=== PATIENT | male | born 1960 | race Caucasian/White ===

== ENCOUNTER → 2016-04-19 | Outpatient (CLI) | payer OTHER ==
[~2016-04-19] MED LIST: BND25 PO; CIPR-255 PO; CLC100 PO; DTR5 PO; ESCI10TA17 PO; GABA-112 PO; OXYC7.5T62 PO
[2016-04-19 12:27] LABS: BLOOD UREA NITROGEN 26 mg/dl (7-18); BUN/CREATININE RATIO 23.9 (10-20)
== END | disposition home or self-care (01) ==
LOC: C.LAB 11:14
PROVIDERS: ATTEND Urology
DX: R97.20 Elevated prostate specific antigen [PSA] (principal); C61 Malignant neoplasm of prostate

== ENCOUNTER 2016-06-27 05:28 | Inpatient (IN) | payer OTHER ==
[2016-06-10 08:44] VITALS: BMI 29.0
--- NOTE | 2016-06-10 09:14 | PAT Medication Instructions ---
Service Date June 10, 2016. Current Home Medication List Diphenhydramine Hcl (Benadryl), 25 MG PO QAM Escitalopram (Lexapro), 10 MG PO BID Gabapentin (Neurontin), 100 MG PO QAM Medication Instructions For Your Scheduled Surgery - Hold the following medications the morning of surgery: Diphenhydramine Hcl (Benadryl), 25 MG PO QAM - Take the following medications the morning of surgery with a sip of water: Escitalopram (Lexapro), 10 MG PO BID Gabapentin (Neurontin), 100 MG PO QAM - Take the following medications as scheduled the night before surgery: Escitalopram (Lexapro), 10 MG PO BID If you have any questions please call us at [phone] or [phone] ( [place]) or [phone]
--- NOTE | 2016-06-10 10:08 | DIAGNOSTIC IMAGING REPORT ---
CHEST PREADMISSION(PA/LAT) CLINICAL HISTORY: Preoperative chest SMOKER COMPARISON STUDY: No previous studies for comparison. FINDINGS: The cardiac and mediastinal contours are normal. There is no evidence of focal pulmonary consolidation. There is no evidence of failure. No pleural effusions are visualized.[ IMPRESSION: No active disease in the chest. Electronically signed by: Sebastian Fletcher M.D. 06/10/2016 10:07 AM Dictated Date/Time: 06/10/2016 10:07 AM
[2016-06-10 10:54] LABS: BASO % 0.6 %; BASO ABS # 0.05 K/uL (0-0.2); COMPLETE YES; EOS % 3.5 %; HEMATOCRIT 46.3 % (42-52); IG% 0.2 %; LYMPH % 18.1 %; LYMPH ABS # 1.54 K/uL (1.2-3.4); MEAN CELL VOLUME 90.3 fL (80-100); MEAN CORPUSCULAR HEMOGLOBIN 30.2 pg (25-34); MEAN CORPUSCULAR HGB CONC 33.5 g/dl (32-36); MEAN PLATELET VOLUME 10.8 fL (7.4-10.4); MONO % 10.1 %; NEUT % 67.5 %; PLATELET COUNT 257 K/uL (130-400); RED BLOOD COUNT 5.13 M/uL (4.7-6.1)
[2016-06-10 10:56] LABS: URINE APPEARANCE CLEAR (CLEAR); URINE BILIRUBIN NEG (NEG); URINE COLOR YELLOW; URINE NITRITE NEG (NEG); URINE SPECIFIC GRAVITY 1.027 (1.000-1.030); UROBILINOGEN NEG (NEG)
[2016-06-10 10:57] LABS: MANUAL MICROSCOPIC REQUIRED? NO; REVIEW REQ? NO
[2016-06-10 11:02] LABS: BUN/CREATININE RATIO 20.7 (10-20); CREATININE 1.2 mg/dl (0.60-1.40); POTASSIUM 4.2 mmol/L (3.5-5.1)
[2016-06-10 11:13] LABS: CALCIUM 9.3 mg/dl (8.5-10.1)
[~2016-06-27] VITALS: Ht 175.3 cm; Wt 89.4 kg
[2016-06-27] VITALS (9 sets, daily range): BP systolic 114–153; BP diastolic 53–94; PULSE 49–81; TEMP 36.4–36.6; O2SAT 68–100; Ht 175.3 cm; Wt 89.4 kg
[~2016-06-27 05:28] MED LIST changes: -BND25 PO; -CIPR-255 PO; -CLC100 PO; +DIPH25CA5 PO; -DTR5 PO; -OXYC7.5T62 PO
[2016-06-27] MEDS ORDERED: ACETAMINOPHEN IV 1000MG/100ML IV STA (05:51)
[2016-06-27] MEDS ORDERED: LACTATED RINGER'S 1000ML 1,000 ML IV SCH (06:00)
[2016-06-27] MEDS ORDERED: HEPARIN SOD 5000 UNIT/0.5 ML CARP SQ SCH (06:00)
[2016-06-27] MEDS ORDERED: CEFAZOLIN 1000MG/55 ML D5W IV SCH (06:00)
[2016-06-27] MEDS ORDERED: FENTANYL CITRATE INJ 50 MCG/1 ML 2 ML VIAL ONE (06:51)
[2016-06-27] MEDS ORDERED: GLYCOPYRROLATE INJ 0.2 MG/ML VIAL ONE ×2 (06:51→08:29)
[2016-06-27] MEDS ORDERED: DEXAMETHASONE SOD INJ 4 MG/ML VIAL ONE (06:51)
[2016-06-27] MEDS ORDERED: LIDOCAINE HCL 2% 2 ML VIAL (20MG/ML) ONE (06:51)
[2016-06-27] MEDS ORDERED: ROCURONIUM BROMIDE 10 MG/ML 5 ML VIAL ONE (06:51)
[2016-06-27] MEDS ORDERED: NEOSTIGMINE METHYLSULFATE 5 MG/5 ML SYR ONE (06:51)
[2016-06-27] MEDS ORDERED: PROPOFOL IV EMULSION 10 MG/ML 20 ML VIAL IV ONE (06:51)
[2016-06-27] MEDS ORDERED: MIDAZOLAM HCL 1 MG/ML 2ML VIAL ONE (06:51)
[2016-06-27] MEDS ORDERED: ONDANSETRON INJ 2 MG/ML 2 ML VIAL ONE (06:51)
--- NOTE | 2016-06-27 06:54 | History & Physical Bridge Note ---
H&P Re-Evaluation Bridge Note: I have examined the patient, reviewed the History & Physical and in the interval since the performance of the History & Physical I have noted the following changes of clinical significance: No changes noted
[2016-06-27] MEDS ORDERED: KETAMINE HCL INJ 50 MG/ML 10 ML VIAL ONE (07:09)
[2016-06-27] MEDS ORDERED: SODIUM CHLORIDE 0.9% INJ 10 ML VIAL ONE (07:09)
[2016-06-27] MEDS ORDERED: BUPIVACAINE 0.5 % 5 MG/1 ML MPF 30ML VIAL ONE (07:10)
[2016-06-27] MEDS ORDERED: PHENYLEPHRINE HCL INJ 10 MG/ML VIAL ONE (07:37)
[2016-06-27] MEDS ORDERED: CEFAZOLIN SOD 1 GM VIAL ONE (07:49)
[2016-06-27] MEDS ORDERED: FENTANYL CITRATE INJ 50 MCG/1 ML 2 ML VIAL IV PRN (08:00)
[2016-06-27] MEDS ORDERED: ONDANSETRON INJ 2 MG/ML 2 ML VIAL IV PRN ×2 (08:00→11:00)
[2016-06-27] MEDS ORDERED: ATROPINE SULFATE 0.1 MG/ML 5ML SYR IV PRN (08:00)
[2016-06-27] MEDS ORDERED: PROMETHAZINE HCL INJ 6.25 MG in SODIUM CHLORIDE 0.9% 50ML 50 ML IV PRN (08:00)
[2016-06-27] MEDS ORDERED: EpHEDrine SULFATE INJ 50 MG/ML AMP IV PRN (08:00)
[2016-06-27] MEDS ORDERED: HYDROmorphone INJ 1 MG/ML SYR IV PRN ×2 (08:00→11:00)
[2016-06-27] MEDS ORDERED: ATROPINE SULFATE 1MG/2.5ML SYR ONE (08:29)
[2016-06-27] MEDS ORDERED: EpHEDrine SULFATE 50MG/5ML SYR ONE (08:29)
[2016-06-27] MEDS ORDERED: HYDROmorphone INJ 2 MG/ML SYR/VIAL ONE (08:58)
[2016-06-27] MEDS ORDERED: LARYING-O-JET KIT (LTA) EXT ONE ×2 (09:03)
[2016-06-27] MEDS ORDERED: KETOROLAC TROMETHAMINE 30 MG/ML VIAL ONE (10:05)
--- NOTE | 2016-06-27 10:46 | [facility] Post Operative Brief Note ---
Immediate Operative Summary Operative Date June 27, 2016. Pre-Operative Diagnosis cTc [place] 3+3 Prostate cancer Post-Operative Diagnosis Same as preop Procedure(s) Performed Robotic-assisted Laparoscopic Prostatectomy, bilateral nerve sparing dissection, Suprapubic Tube placement Surgeon Dr. Mukul Person Embossing Machine Tender Surgeon(s) REID Boyle Estimated Blood Loss 75 cc Findings Watertight anastomosis, SPT in good location, significant periprostatic inflammation with trapped purulence at the level of the bladder neck dissection. Fluids (cc crystalloids) 1500 cc crystalloid Specimens Periprostatic fat Prostate + SVs Anterior bladder neck tissue Drains 18 fr dia, 10 cc, 16 fr SPT, 5 cc, #10 LINO LLQ Anesthesia GAET + local Complication(s) None Disposition Recovery Room / PACU
[2016-06-27] MEDS ORDERED: KETOROLAC TROMETHAMINE 15 MG/ML VIAL IV PRN (11:00)
[2016-06-27] MEDS ORDERED: OXYBUTYNIN CHLORIDE 5 MG TAB PO PRN (11:00)
[2016-06-27 11:14] LABS: HEMATOCRIT 46.8 % (42-52); MEAN CELL VOLUME 90.7 fL (80-100); MEAN CORPUSCULAR HEMOGLOBIN 30.4 pg (25-34); MEAN PLATELET VOLUME 10.1 fL (7.4-10.4); PLATELET COUNT 214 K/uL (130-400); RED BLOOD COUNT 5.16 M/uL (4.7-6.1); WHITE BLOOD COUNT 14.54 K/uL (4.8-10.8)
[2016-06-27] MEDS ORDERED: KETOROLAC TROMETHAMINE 30 MG/ML VIAL IV. PRN (11:15)
[2016-06-27 11:18] LABS: MEAN CORPUSCULAR HGB CONC 33.5 g/dl (32-36)
--- NOTE | 2016-06-27 11:34 | Anesthesiology Progress Note ---
Anesthesia Post Op Note Date & Time June 27, 2016 at 11:34 Vital Signs Pain Intensity: 5.0 Vital Signs Past 12 Hours Date Time Temp Pulse Resp B/P Pulse Ox O2 Delivery O2 Flow Rate FiO2 06/27/16 11:26 130/75 06/27/16 11:25 66 18 99 06/27/16 11:25 67 18 06/27/16 11:21 141/94 06/27/16 11:20 66 14 100 06/27/16 11:20 65 14 06/27/16 11:16 145/75 06/27/16 11:15 62 18 06/27/16 11:15 62 18 99 06/27/16 11:14 71 14 06/27/16 11:14 72 14 99 06/27/16 11:12 117/67 06/27/16 11:09 61 21 134/65 99 06/27/16 11:09 58 21 06/27/16 11:04 56 15 06/27/16 11:04 56 15 100 06/27/16 11:01 129/65 06/27/16 10:59 61 19 06/27/16 10:59 61 19 100 06/27/16 10:56 111/55 06/27/16 10:54 59 17 06/27/16 10:54 36.9 53 16 111/55 100 Mask 10 06/27/16 10:54 59 17 106/64 99 06/27/16 05:50 36.6 70 20 153/94 97 Room Air Notes Mental Status: alert / awake / arousable, participated in evaluation Pt Amnestic to Procedure: Yes Nausea / Vomiting: adequately controlled Pain: adequately controlled Airway Patency, RR, SpO2: stable & adequate BP & HR: stable & adequate Hydration State: stable & adequate Anesthetic Complications: no major complications apparent
[2016-06-27 11:42] LABS: BUN/CREATININE RATIO 16.5 (10-20); CALCIUM 8.2 mg/dl (8.5-10.1); CREATININE 1.4 mg/dl (0.60-1.40); POTASSIUM 4.6 mmol/L (3.5-5.1)
--- NOTE | 2016-06-27 12:34 | OPERATIVE REPORT ---
DATE OF OPERATION: 06/27/2016 PREOPERATIVE DIAGNOSIS: Clinical T1c, [place] 3+3 adenocarcinoma of the prostate. POSTOPERATIVE DIAGNOSES: Same, periprostatic bladder neck inflammation and purulent collections. PROCEDURE: Robot-assisted laparoscopic radical retropubic prostatectomy with bilateral nerve sparing dissection and suprapubic tube placement. SURGEON: Dr. Orion Person. SHAPE BRICK MOLDER: None. ANESTHESIA: General anesthesia with endotracheal intubation plus local at port sites. COMPLICATIONS: None. ESTIMATED BLOOD LOSS: 75 mL. INTRAVENOUS FLUIDS: Approximately 1200 mL of crystalloid. DRAINS LEFT IN PLACE: Include an 18-Belgian Farrell catheter to gravity drainage, silicone with 10 mL of sterile water in the balloon and a 16-Belgian suprapubic tube with 5 mL of sterile water in the balloon as well as a #10 LINO drain in the left lower quadrant. SPECIMENS SENT TO PATHOLOGY: Periprostatic fat, prostate plus seminal vesicles, anterior bladder neck tissue. BRIEF HISTORY OF PRESENT ILLNESS: Mr. Jacome is a pleasant 56-year-old male who has previously seen Dr. Simon and had been diagnosed with [place] 3+3 adenocarcinoma of the prostate in the fall of 2015. He originally decided upon active surveillance, but became uncomfortable with this over the spring and he decided upon a radical prostatectomy to manage his disease. His history of baseline voiding symptoms is noted. Please see H\T\P for further details. He is here today for robotic prostatectomy. Preoperative heparin subcutaneously is provided as well as intravenous cephalosporins. SCDs used for DVT prophylaxis. DESCRIPTION OF PROCEDURE: The patient was properly identified and brought to the operative suite after identification of appropriate consent on the chart, general anesthesia with endotracheal intubation was initiated. The patient was prepped and draped in standard fashion for this procedure. asbestos textile supervisor-out procedure was followed. All port sites were anesthetized with local prior to incision. A 12 mm supraumbilical incision was made vertically and abdomen was entered under direct visualization using a 12 mm visual obturator. Abdomen was insufflated and the patient was noted to be free of any significant injuries on access and placement of the scope. The ports were placed for a 4th arm robotic template including two 7 mm left-sided robotic ports, one 7 mm right-sided robotic port and a 5 and 12 mm assistant county engineer port on the right hand side. The patient was placed in Trendelenburg and robot was brought in and docked. Colonic attachments were loosed using cold scissors. Bladder was drained down to the level of the pubic bone. Prostate was defatted and fat was sent for pathologic analysis. Endopelvic fascia was sharply entered on both sides and the puboprostatic ligaments were incised. Dorsal vein was skeletonized and controlled in a [id number] fashion using a 0 Vicryl suture on a CT1 needle. Nerve sparing dissection was initiated on both sides at this point. Periprostatic fat was begun to be appreciated at this time. However, on traversing the bladder neck, the pockets of purulence were encountered consistent with previous episodes of prostatitis and/or urinary tract infection. At first, it was concern that these pockets were contained within prostate tissue with intravesical extension and a small portion of this was removed and sent for permanent analysis, but on close inspection was felt to be most consistent with inflamed bladder neck tissue. Contour prostate was noted to be good and no glandular tissue was appreciated within the prostate gland. This continued to be encountered circumferentially at the level of the bladder neck. However, the bladder neck was then divided in the posterior plane and then dropped in the midline until the vas deferens and the seminal vesicles were encountered in the midline. Again, significant inflammation was appreciated. Inferior bladder pedicles and prostatic pedicles were controlled using cold Weck clips and cold scissors as necessary. After this was complete, the remainder of the seminal vesicles and the vas deferens were dissected free and rectum was dropped in the midline up to the level of the apex of the prostate. Cold scissors were used to perform an exact nerve sparing dissection on both sides. Attention was turned to the bladder neck which was noted to be good aperture. The small pockets within the bladder neck that were draining pus were either excised cauterized to avoid leaving this in situ. The dorsal vein was divided using hot scissors and urethra was skeletonized with an excellent urethral length being appreciated. Cold scissors were used to divide the urethra after the Farrell catheter had been replaced. Posterior urethra was divided as well as the rectourethralis ligaments. Prostate was now freed and brought up into the abdomen. This was placed within an EndoCatch bag for retrieval at the end of the case. Pelvis was irrigated with saline and rectum was insufflated under saline irrigation demonstrating no evidence of any rectal injuries. Excellent hemostasis was appreciated at this time. Using a double armed V-Loc suture, a circumferential running anastomosis was performed to the urethra and the bladder neck. Prior to completion of closure, the Farrell catheter was visualized entering the bladder. This was tested with greater than 160 mL of irrigant and noted to be watertight. At this point, the bladder was filled and clamped and then through a small suprapubic incisions, the [place]ner suprapubic tube was advanced first into the abdomen and then into the bladder in its anterior aspect. This was noted to drain clear irrigant of 15 mL of sterile water were placed within the balloon. Excellent location was appreciated. Fourth arm was removed and #10 LINO drain was brought in via the fourth arm port. This was placed within the confines of the pelvis while avoiding placing it directly over the anastomosis. Robot was dedocked and robotic instruments were removed. The robotic camera was brought in via the assistant county engineer port. Strings to the EndoCatch bag were brought up through the supraumbilical port which was then enlarged sufficiently to allow for passage of the specimen bag without resistance or difficulties. Suprapubic incision was closed using 0 Vicryl suture on a UR-5 needle in a running fashion. A silk suture was used to secure the suprapubic tube and the LINO drain in place. Skin incisions were closed using Monocryl and Dermabond dressing. Excess carbon dioxide gas had been removed from the abdomen prior to completion of closure. A suprapubic tube and a Farrell catheter placed to gravity drainage. Anesthesia was reversed. The patient was transferred to recovery room in stable condition. FOLLOWUP CARE: The patient will be admitted to the floor for standard postoperative management. I attest to the content of the Intraoperative Record and any orders documented therein. Any exceptions are noted below. CAMMY
[2016-06-27 13:15] LABS: PARTIAL THROMBOPLASTIN RATIO 1.1; PROTHROMBIN TIME (PATIENT) 10.7 SECONDS (9.0-12.0)
[2016-06-27] MEDS: LACTATED RINGER'S 1000ML 1,000 ML IV SCH ×4 (13:40→23:38)
[2016-06-27] MEDS: CEFAZOLIN IV 2,000 MG in DEXTROSE 5% 50ML 50 ML IV SCH ×2 (13:49→21:30)
[2016-06-27] MEDS: ACETAMINOPHEN 500 MG TAB PO SCH ×2 (13:49→19:48)
[2016-06-27] MEDS: HEPARIN SOD 5000 UNIT/0.5 ML CARP SQ SCH (18:35)
[2016-06-27] MEDS: OXYCODONE/ACETAMINOPHEN 7.5-325 TAB PO PRN ×2 (19:57→21:30)
[2016-06-27] MEDS: ESCITALOPRAM OXALATE 10 MG TAB PO SCH (21:30)
[2016-06-27] MEDS: DOCUSATE SODIUM 100 MG CAP PO SCH (21:30)
[2016-06-28] MEDS: ACETAMINOPHEN 500 MG TAB PO SCH ×2 (01:46→09:53)
[2016-06-28 03:12] VITALS: BP 116/67; PULSE 47; TEMP 36.5; O2SAT 95
[2016-06-28] MEDS: CEFAZOLIN IV 2,000 MG in DEXTROSE 5% 50ML 50 ML IV SCH (06:15)
[2016-06-28] MEDS: HEPARIN SOD 5000 UNIT/0.5 ML CARP SQ SCH (07:15)
[2016-06-28] MEDS: LACTATED RINGER'S 1000ML 1,000 ML IV SCH (07:16)
[2016-06-28 07:27] VITALS: BP 113/73; PULSE 47; TEMP 36.6; O2SAT 95
--- NOTE | 2016-06-28 07:46 | Anesthesiology Progress Note ---
Anesthesia Post Op Note Date & Time June 28, 2016 at 07:46 Vital Signs Pain Intensity: 4.0 Vital Signs Past 12 Hours Date Time Temp Pulse Resp B/P Pulse Ox O2 Delivery O2 Flow Rate FiO2 06/28/16 07:27 36.6 47 18 113/73 95 Room Air 06/28/16 03:12 36.5 47 16 116/67 95 Room Air 06/27/16 23:15 36.5 81 16 114/79 92 Room Air 06/27/16 20:00 36.5 61 16 125/75 98 Room Air Notes Mental Status: alert / awake / arousable, participated in evaluation Pt Amnestic to Procedure: Yes Nausea / Vomiting: adequately controlled Pain: adequately controlled Airway Patency, RR, SpO2: stable & adequate BP & HR: stable & adequate Hydration State: stable & adequate Anesthetic Complications: no major complications apparent
[2016-06-28 08:02] LABS: BASO % 0.1 %; BASO ABS # 0.01 K/uL (0-0.2); COMPLETE YES; EOS % 0.4 %; HEMATOCRIT 41.8 % (42-52); IG% 0.2 %; LYMPH % 7.8 %; LYMPH ABS # 1.34 K/uL (1.2-3.4); MEAN CELL VOLUME 90.5 fL (80-100); MEAN CORPUSCULAR HEMOGLOBIN 29.9 pg (25-34); MEAN PLATELET VOLUME 10.8 fL (7.4-10.4); MONO % 8.9 %; NEUT % 82.6 %; PLATELET COUNT 204 K/uL (130-400); RED BLOOD COUNT 4.62 M/uL (4.7-6.1); WHITE BLOOD COUNT 17.12 K/uL (4.8-10.8)
[2016-06-28 08:32] LABS: BUN/CREATININE RATIO 18.6 (10-20); CREATININE 1.2 mg/dl (0.60-1.40); POTASSIUM 4.3 mmol/L (3.5-5.1)
--- NOTE | 2016-06-28 08:51 | Progress Note ---
Subjective Date of Service: June 28, 2016. Subjective Pt evaluation today including: conversation w/ patient, physical exam, chart review, lab review, review of inpatient medication list Pain: Controlled PO Intake: Gordy clears Voiding: dia catheter in place (SPT and dia draining well) 56 yo male POD#1 s/p RALRP, doing well. He notes he was OOBTC yesterday, gordy clears, pain well controlled. His labs are stable. Review of Systems Constitutional: No chills, No fever Eyes: No worsening of vision ENT: No hearing loss Respiratory: No shortness of breath, No wheezing Cardiac: No chest pain Abdomen: + pain (mild), No nausea, No vomiting Musculoskeletal: No muscle pain Male : + hematuria (improved) Neurologic: No memory loss, No paralysis, No weakness Psychiatric: No depression symptoms Heme: No clotting problems Endo: No fatigue Skin: No color change, No new/changing skin lesions Objective Vital Signs Date Time Temp Pulse Resp B/P Pulse Ox O2 Delivery O2 Flow Rate FiO2 06/28/16 07:27 36.6 47 18 113/73 95 Room Air 06/28/16 03:12 36.5 47 16 116/67 95 Room Air 06/27/16 23:15 36.5 81 16 114/79 92 Room Air 06/27/16 20:00 36.5 61 16 125/75 98 Room Air 06/27/16 19:30 Room Air 06/27/16 16:36 95 Room Air 06/27/16 15:15 36.6 53 16 121/77 99 Nasal Cannula 2.0 06/27/16 14:22 36.4 54 18 114/53 100 Nasal Cannula 2.0 06/27/16 13:19 36.5 62 17 121/75 68 Nasal Cannula 2.0 06/27/16 12:49 36.4 49 16 133/82 98 Nasal Cannula 2.0 06/27/16 12:10 99 Nasal Cannula 2.0 06/27/16 12:10 36.5 78 16 124/80 99 Nasal Cannula 2.0 06/27/16 12:10 99 Nasal Cannula 2.0 06/27/16 12:01 126/66 06/27/16 11:59 63 14 99 06/27/16 11:59 62 14 06/27/16 11:56 118/64 5/18/17 11:54 49 12 98 5/18/17 11:54 50 12 5/18/17 11:53 46 16 5/18/17 11:53 47 16 99 5/18/17 11:51 133/70 5/18/17 11:48 57 14 99 5/18/17 11:48 55 14 5/18/17 11:46 133/86 5/18/17 11:45 36.2 5/18/17 11:43 73 20 5/18/17 11:43 72 20 99 518/17 11:42 66 17 5/18/17 11:42 66 17 98 518/17 11:41 130/72 518/17 11:37 52 12 5/18/17 11:37 51 12 99 518/17 11:36 143/75 518/17 11:32 63 16 100 5/18/17 11:32 61 16 5/18/17 11:31 132/76 5/18/17 11:27 48 12 99 518/17 11:27 48 12 5/18/17 11:26 130/75 5/18/17 11:25 66 18 99 5/18/17 11:25 67 18 5/18/17 11:21 141/94 5/18/17 11:20 66 14 100 5/18/17 11:20 65 14 5/18/17 11:16 145/75 518/17 11:15 62 18 5/18/17 11:15 62 18 99 5/18/17 11:14 71 14 5/18/17 11:14 72 14 99 5/18/17 11:12 117/67 518/17 11:09 61 21 134/65 99 518/17 11:09 58 21 5/18/17 11:04 56 15 5/18/17 11:04 56 15 100 5/18/17 11:01 129/65 5/18/17 10:59 61 19 5/18/17 10:59 61 19 100 5/18/17 10:56 111/55 5/18/17 10:54 59 17 5/18/17 10:54 36.9 53 16 111/55 100 Mask 10 5/18/17 10:54 59 17 106/64 99 Physical Exam General Appearance: WD/WN, no apparent distress Eyes: normal inspection ENT: normal ENT inspection, hearing grossly normal Neck: supple, no adenopathy Respiratory/Chest: no respiratory distress, no accessory muscle use Cardiovascular: no JVD Abdomen: non tender, soft, + pertinent finding (inc c/d/i) Extremities: non-tender Neurologic/Psychiatric: alert, oriented x 3 Skin: normal color Laboratory Results Last 24 Hours Test 06/27/16 11:09 06/27/16 12:53 06/28/16 07:30 White Blood Count 14.54 K/uL 17.12 K/uL Red Blood Count 5.16 M/uL 4.62 M/uL Hemoglobin 15.7 g/dL 13.8 g/dL Hematocrit 46.8 % 41.8 % Mean Corpuscular Volume 90.7 fL 90.5 fL Mean Corpuscular Hemoglobin 30.4 pg 29.9 pg Mean Corpuscular Hemoglobin Concent 33.5 g/dl 33.0 g/dl RDW Standard Deviation 44.6 fL 45.2 fL RDW Coefficient of Variation 13.4 % 13.7 % Platelet Count 214 K/uL 204 K/uL Mean Platelet Volume 10.1 fL 10.8 fL Sodium Level 144 mmol/L 140 mmol/L Potassium Level 4.6 mmol/L 4.3 mmol/L Chloride Level 109 mmol/L 105 mmol/L Carbon Dioxide Level 31 mmol/L 28 mmol/L Anion Gap 4.0 mmol/L 7.0 mmol/L Blood Urea Nitrogen 23 mg/dl 22 mg/dl Creatinine 1.40 mg/dl 1.20 mg/dl Est Creatinine Clear Calc Drug Dose 63.6 ml/min 74.2 ml/min Estimated GFR () 63.7 76.8 Estimated GFR (Non- 55.0 66.3 BUN/Creatinine Ratio 16.5 18.6 Random Glucose 120 mg/dl 101 mg/dl Calcium Level 8.2 mg/dl Prothrombin Time 10.7 SECONDS Prothromb Time International Ratio 1.0 Activated Partial Thromboplast Time 28.0 SECONDS Partial Thromboplastin Ratio 1.1 Neutrophils (%) (Auto) 82.6 % Lymphocytes (%) (Auto) 7.8 % Monocytes (%) (Auto) 8.9 % Eosinophils (%) (Auto) 0.4 % Basophils (%) (Auto) 0.1 % Neutrophils # (Auto) 14.14 K/uL Lymphocytes # (Auto) 1.34 K/uL Monocytes # (Auto) 1.53 K/uL Eosinophils # (Auto) 0.06 K/uL Basophils # (Auto) 0.01 K/uL Immature Granulocyte % (Auto) 0.2 % Immature Granulocyte # (Auto) 0.04 K/uL Assessment and Plan A/P 56 yo male POD$1 s/p RALRP, doing well. Pleased with progress. Advance diet and activity. Discharge activity and limitations reviewed. Prefers SPT - will DC south and LINO prior to DC home. Discharge planning: home
[2016-06-28 09:00] LABS: CALCIUM 8.3 mg/dl (8.5-10.1)
[2016-06-28] MEDS ORDERED: GABAPENTIN 100 MG CAP PO SCH (09:00)
[2016-06-28] MEDS ORDERED: DTR5 PO (09:17)
[2016-06-28] MEDS ORDERED: CLC100 PO (09:17)
[2016-06-28] MEDS ORDERED: OXYC7.5T62 PO (09:17)
[2016-06-28] MEDS ORDERED: CIPR-255 PO (09:17)
--- NOTE | 2016-06-28 09:18 | Discharge Instructions ---
Discharge Instructions Date of Service June 28, 2016. Admission Reason for Admission: Prostate Cancer Discharge Discharge Diagnosis / Problem: Prostate Cancer Discharge Goals Goal(s): Decrease discomfort, Increase independence, Prevent Disease Progression Activity Recommendations Activity Limitations: per Instructions/Follow-up section . Instructions / Follow-Up Instructions / Follow-Up 1. Do not lift >15lbs x 6 weeks. 2. No heavy exercise x 6 weeks. You may engage in light activity such as walking and stairs as tolerated. 3. No sexual intercourse until cleared by Dr. Person or Dr. Petit. 4. [address] drive x [address] while taking narcotics. 5. Finish all of the antibiotic you have been prescribed. 6. Immediately call our office at [phone] if your catheter is removed for any reason. 7. Follow-up as scheduled. Please call our office at [phone] if you need to reschedule for any reason. . Current Hospital Diet Hospital Diet(s): Regular Diet Discharge Diet Recommended Diet: Regular Diet Procedures Procedures Performed: Robotic-assisted Laparoscopic Prostatectomy, bilateral nerve sparing dissection, Suprapubic Tube placement Pending Studies Studies pending at discharge: no Medical Emergencies . Who to Call and When: Medical Emergencies: If at any time you feel your situation is an emergency, please call 911 immediately. . Non-Emergent Contact Non-Emergency issues call your: Urologist Call Non-Emergent contact if: temperature is above 101 . . "Provider Documentation" section prepared by Daisy Lopes. . VTE Core Measure Inpt VTE Proph given/why not?: Unfractionated heparin SQ, SCD's [place] Drug Monitoring Program Search Results: no issues identified
[2016-06-28] MEDS: DOCUSATE SODIUM 100 MG CAP PO SCH ×2 (09:47→09:52)
[2016-06-28] MEDS: ESCITALOPRAM OXALATE 10 MG TAB PO SCH (09:47)
[2016-06-28] MEDS: OXYCODONE/ACETAMINOPHEN 7.5-325 TAB PO PRN (09:48)
[2016-06-28 11:49] VITALS: BP 113/73; PULSE 47; TEMP 36.6; O2SAT 95
[2016-06-28 12:00] VITALS: BP 124/86; PULSE 62; TEMP 37.2; O2SAT 94
--- NOTE | 2016-06-28 14:34 | DISCHARGE SUMMARY ---
ADMITTING ATTENDING: Dr. Orion Person. COMPLICATIONS: None. PROCEDURES OVER THE COURSE OF ADMISSION: Include a robot-assisted prostatectomy with suprapubic tube placement on 06/27/2016. BRIEF HISTORY: Mr. Jacome is a pleasant 56-year-old male who I have seen for prostate cancer as an outpatient who has decided upon a robotic prostatectomy to manage his disease. Seeing his low-grade and low volume cancer, bilateral nerve sparing dissection is planned. Please see H\T\P for further details. He is being admitted for this purpose. HOSPITAL COURSE: The patient was admitted after an uncomplicated robotic prostatectomy on 06/27/2016. Over the course of his admission, diet and activity were rapidly advanced. By postoperative day #1, the patient was tolerating a regular diet and ambulatory in the hallways, comfortable with oral pain medication. Once he is taking his diet and ambulated, he will be considered stable for discharge home. Please see hospital notes for further details. Farrell catheter will be removed and he will be discharged home with a suprapubic tube in place. LINO will also be removed prior to discharge. DISCHARGE INSTRUCTIONS: Please see medication list and discharge instruction sheets for further details. The patient is instructed to contact us should he note any fevers, chills, nausea, vomiting or other significant difficulties in the postoperative period. Postoperative appointments including trial of void and pathology discussion are reviewed.
== END 2016-06-28 13:15 | disposition home or self-care (01) | DRG 708 ==
LOC: ENRESERVTM → ENRESERVDT → C.ACU 05:28 → C.MSW 10:57
PROVIDERS: ADMIT Urology; ATTEND Urology
PROC: 0VT34ZZ Resection of Bilateral Seminal Vesicles, Percutaneous Endoscopic Approach (ICD-10-PCS; principal; 2016-06-27 07:30)
PROC: 0TBB4ZZ Excision of Bladder, Percutaneous Endoscopic Approach (ICD-10-PCS; principal; 2016-06-27 07:30)
PROC: 8E0W4CZ Robotic Assisted Procedure of Trunk Region, Percutaneous Endoscopic Approach (ICD-10-PCS; principal; 2016-06-27 07:30)
PROC: 0VT04ZZ Resection of Prostate, Percutaneous Endoscopic Approach (ICD-10-PCS; principal; 2016-06-27 07:30)
PROC: 0T9B40Z Drainage of Bladder with Drainage Device, Percutaneous Endoscopic Approach (ICD-10-PCS; principal; 2016-06-27 07:30)
PROC: 0TBC4ZX Excision of Bladder Neck, Percutaneous Endoscopic Approach, Diagnostic (ICD-10-PCS; principal; 2016-06-27 07:30)
DX: C61 Malignant neoplasm of prostate (principal); N30.90 Cystitis, unspecified without hematuria; N41.9 Inflammatory disease of prostate, unspecified; J44.9 Chronic obstructive pulmonary disease, unspecified; F41.9 Anxiety disorder, unspecified; F17.210 Nicotine dependence, cigarettes, uncomplicated; Z79.899 Other long term (current) drug therapy

== ENCOUNTER → 2016-09-09 | Outpatient (CLI) | payer OTHER ==
[~2016-09-09] MED LIST changes: +BND25 PO; +CIPR-255 PO; +CLC100 PO; -DIPH25CA5 PO; +DTR5 PO; +OXYC7.5T62 PO
[2016-09-09 13:42] LABS: BLOOD UREA NITROGEN 24 mg/dl (7-18); BUN/CREATININE RATIO 18.1 (10-20)
[2016-09-09 13:46] LABS: PROSTATE SPECIFIC ANTIGEN < 0.010 ng/ml (0.000-4.000)
== END | disposition home or self-care (01) ==
LOC: C.LAB 12:05
PROVIDERS: ATTEND Urology
DX: N52.9 Male erectile dysfunction, unspecified (principal)

== ENCOUNTER → 2016-12-07 | Outpatient (CLI) | payer OTHER ==
[~2016-12-07] MED LIST changes: -BND25 PO; +DIPH25CA5 PO
[2016-12-07 19:48] LABS: BLOOD UREA NITROGEN 29 mg/dl (7-18); BUN/CREATININE RATIO 22.8 (10-20); CREATININE 1.29 mg/dl (0.60-1.40)
[2016-12-07 19:52] LABS: PROSTATE SPECIFIC ANTIGEN < 0.010 ng/ml (0.000-4.000)
== END | disposition home or self-care (01) ==
LOC: C.LAB 19:04
PROVIDERS: ATTEND Urology
DX: N52.9 Male erectile dysfunction, unspecified (principal)

== ENCOUNTER → 2017-03-08 | Outpatient (CLI) | payer OTHER ==
[2017-03-08 19:30] LABS: BLOOD UREA NITROGEN 35 mg/dl (7-18)
== END | disposition home or self-care (01) ==
LOC: C.LAB 18:47
PROVIDERS: ATTEND Urology
DX: R97.20 Elevated prostate specific antigen [PSA] (principal)

== ENCOUNTER 2017-09-08 15:02 | Emergency (ER) | payer OTHER ==
[~2017-09-08] VITALS: Ht 175.3 cm; Wt 91.8 kg
[2017-09-08 15:11] VITALS: TEMP 36.7; Ht 175.3 cm; Wt 91.8 kg
[2017-09-08] MEDS ORDERED: LIDOCAINE/EPINEPH/TETRACAINE 1 EA SYR EXT STA (15:21)
--- NOTE | 2017-09-08 15:27 | EMERGENCY ROOM VISIT NOTE ---
ED Visit Note First contact with patient: 15:15 Chief Complaint: "Head crushed, work injury". History of Present Illness: This patient is a 57-year-old male who presents to the Emergency Department via private vehicle accompanied by a fellow colleague for evaluation of their 2 facial lacerations and had crushing injury. Patient sustained the laceration while working earlier today around 2:30 PM at [employer], when his head became pinned left to right with a few 100 pounds pressing on it. He notes that he did not lose consciousness, he did not vomit and feels well. His pain is a 2/10. He points to 2 lacerations on the left side of the face 1 over the left protestant and one in left eyebrow region as well as hematoma overlying the left parietal region minimal. They report a minimal amount of bleeding initially. They report no loss of consciousness. They deny any visual disturbance, nausea, vomiting, or neck pain. Patient's Tetanus status is currently up-to-date. Medications: As noted below Allergies: As noted below PMH: No pertinent SHx: Patient is employed and lives locally. ROS: All pertinent positive and negative review of systems are appropriately documented in the History of Present Illness. Physical Exam: VITAL SIGNS - Vital signs and nursing notes were reviewed. Hypertensive. Otherwise stable. GENERAL -57-year-old male appearing his stated age. Communicates well with provider and answers questions appropriately. SKIN - There are 2 lacerations overlying the left side of the face. The first is 3 cm in length overlying the left protestant with the other being 3 cm in length within the left eyebrow region. There is a total of 6 cm of repairable laceration noted. The edges gape apart with traction. There is no active bleeding appreciated. No deep structures including vessels, musculature, or bony structures are appreciated. HEAD - Normocephalic. No Strong's Sign or Raccoon's Eyes. No depressed skull fractures palpable. Only area of tenderness is just below the left eye favoring left temporal region extending into the left parietal and temporal region of the scalp. No other facial tenderness noted. No nose tenderness. EYES - PERRL with EOMI bilaterally. Without subconjunctival hemorrhage. Palpebral conjunctiva pink and moist with no injection. EARS - No deformities of external structures noted on gross examination bilaterally. No hemotympanum present. No tympanic perforation noted. NOSE - Midline and without cyanosis. No epistaxis or clear watery discharge noted. Septum midline without deviation. No septal hematoma noted. No overlying ecchymosis noted. No tenderness to palpation. MOUTH/OROPHARYNX - Without perioral cyanosis. Tongue midline with equal elevation of palate bilaterally. No blood noted in the oropharynx. No tonsillar hypertrophy, erythema, or exudates noted. No dental fractures noted. NECK - FROM assessed. No tenderness to palpation over the cervical spinous processes. No cervical paraspinal muscle tenderness noted. LUNGS - Chest wall symmetric without accessory muscle use, intercostals retractions, or central cyanosis. Normal vesicular breath sounds CTA B/L. No wheezes, rales, or rhonchi appreciated. CARDIAC - RRR with S1/S2. No murmur, rubs, or gallops appreciated. EXTREMITIES - No gross deformities noted of the extremities. +5/5 strength noted in UE/LE bilaterally. NEUROLOGIC - Cranial nerves II through XII grossly intact. Sensory intact to light touch throughout. PSYCH - A&Ox3 and cooperates fully with examiner. Pt is very pleasant and interacts well with examiner. IMAGING: CT HEAD WITHOUT CONTRAST (CT) CLINICAL HISTORY: Head pain status post trauma COMPARISON STUDY: No previous studies for comparison. TECHNIQUE: Axial CT of the brain is performed from the vertex to the skull base. IV contrast was not administered for this examination. A dose lowering technique was utilized adhering to the principles of ALARA. CT DOSE: FINDINGS: No intra or extra-axial mass lesions are visualized. There is no CT evidence of acute cortical infarction. There is no evidence of midline shift. There is no acute hemorrhage. No calvarial fractures are visualized. There is left frontotemporal or scalp edema There is no evidence of pathologic ventricular dilatation. There is left maxilla sinus mucosal thickening. IMPRESSION: 1. Left frontotemporal scalp edema 2. No acute intracranial findings. Electronically signed by: Sebastian Fletcher M.D. 09/08/2017 3:54 PM Dictated Date/Time: 09/08/2017 3:[address] FACIAL BONES-MXILLOFAC WITHOUT CT DOSE: CLINICAL HISTORY: Facial pain status post trauma COMPARISON STUDY: No previous studies for comparison. TECHNIQUE: Helical images were acquired in the transverse plane. The study was reviewed and analyzed on the independent 3-D workstation. A dose lowering technique was utilized adhering to the principles of ALARA. The pterygoid plates appear intact. The zygomatic arches appear intact. The globes appear intact. There is no evidence of orbital emphysema. The orbital paz and floor appear intact. The mandibular condyles appear intact. There is left frontal and temporal scalp edema. There is left periorbital edema. There is a left nasal bone fracture, possibly old There is fluid and mucosal thickening within the left maxillary sinus. There is deformity of the anterior wall the left maxillary sinus and posterior lateral wall. I suspect but am not certain that these are old. IMPRESSION: 1. Left frontal and temporal scalp edema. Left periorbital edema 2. Left nasal bone fracture, possibly old 3. Mucosal disease within the left maxillary sinus. Deformities of the anterior wall and posterior lateral paz of the left maxillary sinus, possibly old. Please correlate with patient's current site of pain as well as with any history of remote trauma. Electronically signed by: Sebastian Fletcher M.D. 09/08/2017 4:01 PM Dictated Date/Time: 09/08/2017 3:[address] SCAN OF THE CERVICAL SPINE CLINICAL HISTORY: Trauma. COMPARISON STUDY: No priors. TECHNIQUE: CT scan of the cervical spine is performed from the skull base to the upper thoracic spine. Images are reviewed in the axial, sagittal, and coronal planes. IV contrast was not administered for this examination. A dose lowering technique was utilized adhering to the principles of ALARA. CT DOSE: 1129.07 mGy.cm FINDINGS: Skeletal structures: The skeletal structures are well mineralized. There is no evidence of fracture or subluxation involving the cervical spine. Vertebral body height and alignment are maintained. The odontoid process and lateral masses are intact. The atlantoaxial articulation is preserved. The spinous processes appear intact. Mild uncovertebral and facet arthropathy are noted in the mid to lower cervical region. Intervertebral discs: There is mild disc space narrowing at C5-C6. The remaining disc spaces appear maintained. Central canal: A large posterior disc bulge at C5-C6 may contribute to acquired compromise of the central canal. Soft tissues: The prevertebral and paraspinous soft tissues are within normal limits. Calvarium: The visualized calvarium at the skull base appears intact. Brain parenchyma: Partially visualized brain parenchyma the skull base is within normal limits. Sinuses and mastoids: Mucosal thickening is noted in the partially imaged maxillary antra. The mastoid air cells are well pneumatized. Lung apices: Clear as visualized. IMPRESSION: There is no evidence of fracture or subluxation involving the cervical spine. Electronically signed by: Shyam Prather M.D. 09/08/2017 3:58 PM Dictated Date/Time: 09/08/2017 3:54 PM ED Course: Patient was seen and evaluated by myself. Patient had no focal neurological deficits. Patient's exam is otherwise unremarkable. Patient reports no visual disturbances, nausea, vomiting, or over-lethargy. Risk and benefits of performing primary wound closure versus no repair were discussed with the patient who verbalizes understanding. Verbal consent was obtained prior to performing the procedure. Let gel was placed upon the 2 lacerations. The first laceration overlying the protestant region barely gapes apart with traction at this point. Patient preferred to have this just cleansed and dressed with a bacitracin dressing and not stitch. I believe this is reasonable. Attention was then turned to the other laceration in the left eyebrow region which let gel was allowed to sit in place for greater than 45 minutes. Furthermore, 3 cc of 1% lidocaine was used to anesthetize the 3 cm laceration. The wound was cleansed and prepped in the typical sterile fashion utilizing normal saline and Betadine. The wound was sterilely draped. Once proper anesthetization was established, the wound was further examined and demonstrated no deep involvement. The wound was copiously irrigated with normal saline and Betadine. The wound was closed using 3 simple, 6-0 nylon sutures with the wound edges being well approximated. Patient tolerated the procedure well. No complications were met. The wound was cleansed and dressed with a Bacitracin dressing. Secondary to mechanism of injury and his presentation I will recommend CT scan of the head, face and C-spine without contrast. Results as above. There are questionable fractures of the left maxillary sinus region. He has no tender overlying this region. I did discuss these findings with radiology to correlate with mechanism of injury. These are very small. I did elect to discuss this with the on-call plastic surgeon, Dr. Lr. He will follow up with her in the outpatient setting for reevaluation. He is to follow with Worker's Compensation. Upon my reassessment here I believe he is stable for outpatient management. He will be placed upon Augmentin to prevent infection secondary to potential small fracture however I favor these to be old. Patient educated on worrisome symptoms for return visit to the Emergency Department. Patient discharged to home in good condition. He did request something stronger for pain at home in regard to the contusion overlying the left parietal region therefore will be given [place]. He is to not drive with this. Benefit versus risk discussed. No red flags in the [place] drug monitoring system. In the evaluation and treatment of this patient, the following differential diagnoses were considered: Intracranial Abnormality, Intracranial Hemorrhage, Subdural Hematoma, Subarachnoid Hemorrhage, Hydrocephalus facial fracture, cervical spine fracture, among others. Current/Historical Medications Scheduled Amoxicillin & Pot Clavulanate (Augmentin 875-125 mg), 1 TAB PO BID Gabapentin (Neurontin), 100 MG PO QAM Scheduled PRN Escitalopram (Lexapro), 10 MG PO BID PRN for Anxiety Hydrocodone/Acetaminophen 5MG/325MG ([place] 5MG/325MG), 1 TABLET PO Q6 PRN for Pain Meloxicam (Mobic), 15 MG PO DAILY PRN for Pain Allergies Coded Allergies: BEE STING (Verified Allergy, Intermediate, HIVES, 06/27/16) NO KNOWN DRUG ALLERGIES (Verified Allergy, Unknown, nkda, 06/27/16) Vital Signs Date Time Temp Pulse Resp B/P (MAP) Pulse Ox O2 Delivery O2 Flow Rate FiO2 09/08/17 17:21 60 16 150/93 97 09/08/17 15:11 36.7 83 18 174/100 95 Room Air Medications Administered Medications (Trade) Dose Ordered Sig/Jarrett Route Start Time Stop Time Status Last Admin Dose Admin Tetracaine/ Epinephrine/ Lidocaine (L.e.t. Gel 4%/ 1:100/0.5%) 1 ea NOW STAT EXT 09/08/17 15:21 09/08/17 15:24 DC 09/08/17 15:33 1 EA Lidocaine HCl (Xylocaine 1% Inj (Local)) 20 ml STK-MED ONCE .ROUTE 09/08/17 16:27 09/08/17 16:28 DC 09/08/17 16:31 20 ML Departure Information Impression Primary Impression: Crushing injury of head Additional Impression: Face lacerations Dispostion Home / Self-Care Condition GOOD Prescriptions Amoxicillin & Pot Clavulanate (Augmentin 875-125 mg) 1 Tab Tab 1 TAB PO BID for 7 Days, #14 TAB Prov: Sancho Cho PA-C 09/08/17 Hydrocodone/Acetaminophen 5MG/325MG ([place] 5MG/325MG) Tab 1 TABLET PO Q6 Y for Pain, #8 TAB For Initial Treatment Prov: Sancho Cho PA-C 09/08/17 Referrals Paola Ruano D.O. (PCP) Modesta Lr MD Patient Instructions My [facility] Additional Instructions Discharge Instructions: You have received 3 sutures on your left eyebrow region. These sutures are NOT dissolvable and WILL need to be removed by a health care provider in 7 days. You can return to the Emergency Department or contact your Primary Care Provider to have the sutures removed. Please follow-up with Dr. Lr, of plastic surgery. Please call her number to schedule follow-up. Please call her office first thing tomorrow morning. Please also follow-up with Worker's Comp. regarding your work-related injury. You may have to talk with HR or your supervisor claims to identify who this would be. Please take Augmentin, 1 tablet every 12 hours for 7 days to help prevent infection. Please also call your family doctor to schedule follow-up regarding the CT scans of which were copy to the family doctor. This is in regard to the sinus disease. You have also be given a short supply of pain medication, do not drive with this. Do not take this with any other medication for treatment of pain or any Tylenol. Proper wound care is essential for adequate wound healing and infection prevention. You can shower and clean the wound with soap and water. Do not scour over the wound, rather pat dry with a towel. Do not submerse the wound ( i.e. bathe or dish wash) until the sutures have been removed. You can use an antibiotic ointment with a dressing over the wound for the next 3 weeks, but please be sure to only apply a thin film of ointment like Bacitracin. This can be applied 3-4 times daily. If crust develops over the wound you can use a Q- tip with ointment on the end to gently cleanse the crusts. Please do NOT use triple antibiotic ointment as this can cause skin irritation/ reaction. Rather, the bacitracin is prefered. The antibiotic cream will help to decrease scaring and decrease infection risk. Look for signs of infection of the wound including: increased pain, swelling, foul discharge, streaking, or increased temperature. If any of these are noticed you should return to the Emergency Department for further assessment and treatment. As with any laceration you may have received nerve damage to the surrounding tissues. This damage may or may not be permanent. You should keep the area covered with sunscreen when at risk for exposure to help minimize scarring. You can also use scar reducing creams with silicone such as ScarAway silicone serum found at pharmacies over the counter of which may be applied according to package. Please do not apply for more than 3 months. These may be used after the first 3 weeks of antibiotic ointment. Please do NOT use creams with vitamin E, as these can cause irritation and skin thinning. For pain control, you can use the following [id number] medicines (if >12 yo): - Regular strength (325mg/tab) Tylenol (acetaminophen) 1-2 tabs every 4-6 hours as needed. Do not exceed 12 tablets in a 24 hour period. Avoid taking more than 3 grams (3000 mg) of Tylenol per day. This includes any other sources of acetaminophen you may take on a regular basis. - Regular strength (200 mg/tab) Advil (ibuprofen) 1-2 tabs every 4-6 hours as needed. Do not exceed a dose of 3200 mg per day. Return to the emergency department if your symptoms worsen despite treatment course outlined above. Problem Qualifiers
--- NOTE | 2017-09-08 15:55 | DIAGNOSTIC IMAGING REPORT ---
CT HEAD WITHOUT CONTRAST (CT) CLINICAL HISTORY: Head pain status post trauma COMPARISON STUDY: No previous studies for comparison. TECHNIQUE: Axial CT of the brain is performed from the vertex to the skull base. IV contrast was not administered for this examination. A dose lowering technique was utilized adhering to the principles of ALARA. CT DOSE: FINDINGS: No intra or extra-axial mass lesions are visualized. There is no CT evidence of acute cortical infarction. There is no evidence of midline shift. There is no acute hemorrhage. No calvarial fractures are visualized. There is left frontotemporal or scalp edema There is no evidence of pathologic ventricular dilatation. There is left maxilla sinus mucosal thickening. IMPRESSION: 1. Left frontotemporal scalp edema 2. No acute intracranial findings. Electronically signed by: Sebastian Fletcher M.D. 09/08/2017 3:54 PM Dictated Date/Time: 09/08/2017 3:52 PM
--- NOTE | 2017-09-08 15:59 | DIAGNOSTIC IMAGING REPORT ---
CT SCAN OF THE CERVICAL SPINE CLINICAL HISTORY: Trauma. COMPARISON STUDY: No priors. TECHNIQUE: CT scan of the cervical spine is performed from the skull base to the upper thoracic spine. Images are reviewed in the axial, sagittal, and coronal planes. IV contrast was not administered for this examination. A dose lowering technique was utilized adhering to the principles of ALARA. CT DOSE: 1129.07 mGy.cm FINDINGS: Skeletal structures: The skeletal structures are well mineralized. There is no evidence of fracture or subluxation involving the cervical spine. Vertebral body height and alignment are maintained. The odontoid process and lateral masses are intact. The atlantoaxial articulation is preserved. The spinous processes appear intact. Mild uncovertebral and facet arthropathy are noted in the mid to lower cervical region. Intervertebral discs: There is mild disc space narrowing at C5-C6. The remaining disc spaces appear maintained. Central canal: A large posterior disc bulge at C5-C6 may contribute to acquired compromise of the central canal. Soft tissues: The prevertebral and paraspinous soft tissues are within normal limits. Calvarium: The visualized calvarium at the skull base appears intact. Brain parenchyma: Partially visualized brain parenchyma the skull base is within normal limits. Sinuses and mastoids: Mucosal thickening is noted in the partially imaged maxillary antra. The mastoid air cells are well pneumatized. Lung apices: Clear as visualized. IMPRESSION: There is no evidence of fracture or subluxation involving the cervical spine. Electronically signed by: Shyam Prather M.D. 09/08/2017 3:58 PM Dictated Date/Time: 09/08/2017 3:54 PM
--- NOTE | 2017-09-08 16:03 | DIAGNOSTIC IMAGING REPORT ---
CT FACIAL BONES-MXILLOFAC WITHOUT CT DOSE: CLINICAL HISTORY: Facial pain status post trauma COMPARISON STUDY: No previous studies for comparison. TECHNIQUE: Helical images were acquired in the transverse plane. The study was reviewed and analyzed on the independent 3-D workstation. A dose lowering technique was utilized adhering to the principles of ALARA. The pterygoid plates appear intact. The zygomatic arches appear intact. The globes appear intact. There is no evidence of orbital emphysema. The orbital paz and floor appear intact. The mandibular condyles appear intact. There is left frontal and temporal scalp edema. There is left periorbital edema. There is a left nasal bone fracture, possibly old There is fluid and mucosal thickening within the left maxillary sinus. There is deformity of the anterior wall the left maxillary sinus and posterior lateral wall. I suspect but am not certain that these are old. IMPRESSION: 1. Left frontal and temporal scalp edema. Left periorbital edema 2. Left nasal bone fracture, possibly old 3. Mucosal disease within the left maxillary sinus. Deformities of the anterior wall and posterior lateral paz of the left maxillary sinus, possibly old. Please correlate with patient's current site of pain as well as with any history of remote trauma. Electronically signed by: Sebastian Fletcher M.D. 09/08/2017 4:01 PM Dictated Date/Time: 09/08/2017 3:56 PM
[2017-09-08] MEDS ORDERED: LIDOCAINE HCL 1% 20 ML VIAL ONE (16:27)
[2017-09-08] MEDS ORDERED: MELO-84 PO (16:36)
[2017-09-08] MEDS ORDERED: HYDR-5688 PO (17:12)
[2017-09-08] MEDS ORDERED: AMOX875T PO (17:12)
[2017-09-08 17:21] VITALS: BP 150/93; PULSE 60; O2SAT 97
== END 2017-09-08 17:32 | disposition home or self-care (01) ==
LOC: C.EDB 15:03 → C.EDD 17:32
DX: S07.9XXA Crushing injury of head, part unspecified, initial encounter (principal); S01.81XA Laceration without foreign body of other part of head, initial encounter; W23.0XXA Caught, crushed, jammed, or pinched between moving objects, initial encounter; Y99.0 Civilian activity done for income or pay; Z91.030 Bee allergy status

== ENCOUNTER 2023-08-18 14:37 | Inpatient (IN) ==
[2023-08-18 15:15] LABS: Basophils # (auto) 0.12 K/uL (0.00-0.20); Basophils % (auto) 1.3 %; Eosinophils # (auto) 1.13 K/uL (0.00-0.50); Eosinophils % (auto) 12.4 %; Hemoglobin 15.7 g/dl (14.0-18.0); Immature Granulocytes # (auto) 0.02 K/uL (0.01-0.20); Immature Granulocytes % (auto) 0.2 %; Lymphocytes # (auto) 1.71 K/uL (1.20-3.40); Lymphocytes % (auto) 18.8 %; Mean Corpuscular Hemoglobin 29.3 pg (25.0-34.0); Mean Corpuscular Hgb Conc 32.7 g/dL (32.0-36.0); Mean Corpuscular Volume 89.6 fL (80.0-100.0); Mean Platelet Volume 10.7 fL (9.4-12.4); Monocytes # (auto) 0.74 K/uL (0.11-0.59); Monocytes % (auto) 8.1 %; Neutrophils # (auto) 5.36 K/uL (1.40-6.50); Neutrophils % (auto) 59.2 %; Platelet Count 271 K/uL (130-400); RDW Coefficient of Variation 13.2 % (11.5-14.5); RDW Standard Deviation 43.3 fL (36.4-46.3); Red Blood Count 5.36 M/uL (4.70-6.10); White Blood Count 9.08 K/ul (4.8-10.8)
[2023-08-18 15:32] LABS: Albumin Globulin Ratio 1.6 (0.9-2); Albumin Level 4.3 gm/dl (3.4-5.0); Bilirubin,Total 0.4 mg/dl (0.2-1.0); Calcium 9.5 mg/dl (8.6-10.3); Creatinine Clr Calc Pharmacy 52.4 ml/min; Est GFR (African American) 55.8 ml/min; Est GFR (Non-African American) 48.2 ml/min; Globulin 2.7 gm/dl (2.5-4.0); Potassium 4.9 mmol/L (3.5-5.1)
[2023-08-18 15:38] LABS: Troponin I High Sensitivity 5.2 pg/ml (0-20)
[2023-08-18 15:46] LABS: Partial Thromboplastin Time 28 Seconds (21-31); Prothrombin Time 10.4 Seconds (9.0-12.0)
--- NOTE | 2023-08-18 15:49 | XRay Report ---
XR chest 1V not portable HISTORY: Chest pain, nonspecific COMPARISON: Chest 08/29/2020. FINDINGS: The lungs are clear. Cardiac silhouette is normal in size. No pleural effusions. No pneumot horax. IMPRESSION: No acute process. ACT 112: Negative or not required by law. Electronically signed by: Og Younger M.D. 08/18/2023 3:47 PM
[2023-08-18 15:54] LABS: Influenza A virus by PCR Negative (Neg); Influenza B virus by PCR Negative (Neg); RSV by PCR Negative (Neg); SARS CoV2 RNA(COVID-19) Ceph NEGATIVE (Negative)
--- NOTE | 2023-08-18 16:06 | Emergency Department Note ---
Impression & Plan SOB (shortness of breath), Wheezing, Pneumonia, MURCIA (dyspnea on exertion) ED Provider Note NAME: FRANCIS ABARCA AGE: 63 SEX: M : 1960 ARRIVES VIA: Walk-In INFORMANT: [Patient] ED PROVIDER(S): [Shyam Ochoa MD] CHIEF COMPLAINT: Shortness of breath HISTORY OF PRESENT ILLNESS: The patient is a 63-year-old male who has had increasing shortness of breath over the last month. His doctor's office gave him an Anoro device. He is also using albuterol. Despite these meds, he has become more short of breath especially when he tries to lay flat or he exerts himself. The patient has noticed himself wheeze, there has been some cough that is mucousy. No fever. The patient does smoke, he actually tried to quit about a week ago because of his breathing issue. He does have a history of childhood asthma. Patient had a similar episode several months ago more towards the beginning of this year. He was seen at urgent care and given steroids which seemed to improve his symptoms. The patient does not have chest pain. He has no history of DVT or PE. No vomiting or diarrhea. Of note, in triage, his O2 saturation was low and he was placed on nasal cannula supplementation. He does not wear oxygen regularly. PMHx/PSHx/Social Hx: See Below PHYSICAL EXAM: GENERAL: Patient is in no acute distress. HEENT: No acute trauma, normocephalic atraumatic, mucous membranes moist, no nasal congestion. NECK: No stridor, no adenopathy, no meningismus, trachea is midline. LUNGS: Wheezing bilaterally with diminished breath sounds bilaterally. Patient is short of breath with speaking longer sentences. HEART: Without murmurs gallops or rubs, regular rate and rhythm. ABDOMEN: Soft, nontender, no peritonitis. EXTREMITIES: No cyanosis, full range of motion of all the joints without pain or difficulty. NEUROLOGIC: Oriented x 3, no acute motor or sensory deficits, no focal weakness. SKIN: No jaundice, no diaphoresis. DIFFERENTIAL DIAGNOSIS: Bronchitis or pneumonia, CHF, PE, exacerbation of asthma/COPD, anemia, cardiac ischemia, among others. EMERGENCY DEPARTMENT PROCEDURES: MEDICAL DECISION MAKING: There is no leukocytosis or concerning anemia. There is a normal platelet count. No coagulopathy. Patient's creatinine was somewhat elevated at 1.50, likely from dehydration. No electrolyte abnormality in need of emergent correction. BNP was not elevated making CHF unlikely. ECG shows a normal sinus rhythm, no ischemia or dysrhythmia. Cardiac enzyme testing x 1 is not consistent with acute cardiac injury. COVID, influenza and RSV test were negative. Chest x-ray was clear, no pneumonia or CHF. Chest CT did not show PE, bronchitis and potential pneumonia was seen. The patient received a DuoNeb, IV Solu-Medrol, IV saline. He received IV ceftriaxone and oral Zithromax. The patient presents short of breath, things have been worsening for a month. He was borderline hypoxic, wheezing and seemed short of breath even with speaking longer sentences. With his history of smoking, his history of asthma, his CT findings, I do think a hospital stay is warranted. I spoke with the patient and case management, the on-call hospitalist was consulted. Prior/Outside records/notes reviewed: None ECG per my interpretation: Indication was shortness of breath. The ECG shows a normal sinus rhythm with a rate of 77. There is no acute ST elevation, no PVCs. The QTc is 402. Continuous Cardiac Monitoring per my interpretation: An order was placed for continuous cardiac monitoring. The monitor shows a rate of 85 with normal sinus rhythm. Imaging/x-ray results per my interpretation: Chest x-ray does not show mediastinal widening, pneumonia or pneumothorax. Chronic Medical/Social conditions affecting care: Tobacco use. Care/Management discussed with: Case management, the on-call hospitalist. Level of care consideration(s): After review of the information above and other included data: --I believe the patient requires escalation of care to admission DISPOSITION: Admission Past Med/Surg History Problem List (Updated 08/18/23 @ 22:16 by Shyam Ochoa MD) MURCIA (dyspnea on exertion) (Acute) Pneumonia (Acute) Wheezing (Acute) SOB (shortness of breath) (Acute) Bronchopneumonia Elevated PSA (Acute) Prostate cancer (Acute 11/07/15) "Abnormal digital rectal examination, pretreatment PSA 4.850 Status post ultrasound-guided biopsies 11/07/2015 Adenocarcinoma of the prostate Edvin 3+3 Prostate volume 33.4 Prostate density 0.145" Medical History CKD (chronic kidney disease) HLD (hyperlipidemia) Tobacco use disorder HTN (hypertension) Impotence, organic Surgical History H/O prostatectomy Family History Other Colorectal cancer Diabetes Lung cancer Social History Smoking Status: Former smoker Cigarettes Per Day: 10 per day, has not smoked in 1 week; Preferred Language: Persian Feels Safe at Home: Yes Allergies Allergies Allergy/AdvReac Type Severity Reaction Status Date / Time bee venom protein (honey bee) Allergy Intermediate HIVES Verified 07/08/23 09:38 Home Meds Home Medications Medication Instructions Recorded Confirmed atorvastatin 40 mg tablet 40 mg PO DAILY 08/29/20 08/18/23 meloxicam 15 mg tablet 15 mg PO DAILY PRN Back Pain 08/29/20 08/18/23 tramadol 50 mg tablet 50 mg PO BID PRN Pain 08/29/20 08/18/23 albuterol sulfate 90 mcg/actuation 2 inh inhalation Q4H PRN sob or 08/18/23 08/18/23 aerosol inhaler wheezing lisinopril 40 mg tablet 40 mg PO DAILY 08/18/23 08/18/23 umeclidinium 62.5 mcg-vilanterol 1 inh inhalation DAILY 08/18/23 08/18/23 25 mcg/actuation powdr for inhalation (Anoro Ellipta) Results & Data (ED) Vital Signs Vital Signs - 24 hr 08/18/23 14:42 Temperature 36.9 C Temperature Source Temporal Artery Scan Pulse Rate 85 Respiratory Rate 18 Respiratory Effort / Characteristics Non-Labored Spontaneous Respiratory Depth Normal Blood Pressure 155/104 H Blood Pressure Mean 121 Pulse Oximetry 90 Oxygen Delivery Method Room Air Sepsis Recent Fever Within 48 Hours No Sepsis New/Unexplained Change in Mental Status No Sepsis Action Taken by Nursing No Action Required Home Medications Current Medication List: was personally reviewed by me Laboratory Data Attestation: I reviewed the patient's lab results. 08/18/23 14:55 08/18/23 14:55 Lab Results 08/18/23 08/18/23 Range/Units 14:55 14:56 WBC 9.08 (4.8-10.8) K/ul RBC 5.36 (4.70-6.10) M/uL Hgb 15.7 (14.0-18.0) g/dl Hct 48.0 (42.0-52.0) % MCV 89.6 (80.0-100.0) fL MCH 29.3 (25.0-34.0) pg MCHC 32.7 (32.0-36.0) g/dL RDW Std Deviation 43.3 (36.4-46.3) fL RDW Coeff of Lucy 13.2 (11.5-14.5) % Plt Count 271 (130-400) K/uL MPV 10.7 (9.4-12.4) fL Immature Gran % (Auto) 0.2 % Neut % (Auto) 59.2 % Lymph % (Auto) 18.8 % [place] % (Auto) 8.1 % Eos % (Auto) 12.4 % Baso % (Auto) 1.3 % Neut # (Auto) 5.36 (1.40-6.50) K/uL Lymph # (Auto) 1.71 (1.20-3.40) K/uL [place] # (Auto) 0.74 H (0.11-0.59) K/uL Eos # (Auto) 1.13 H (0.00-0.50) K/uL Baso # (Auto) 0.12 (0.00-0.20) K/uL Immature Gran # (Auto) 0.02 (0.01-0.20) K/uL PT 10.4 (9.0-12.0) Seconds INR 1.0 (0.9-1.1) APTT 28 (21-31) Seconds PTT Ratio 1.0 Sodium 138 (136-145) mmol/L Potassium 4.9 (3.5-5.1) mmol/L Chloride 106 (98-107) mmol/L Carbon Dioxide 27 (21-32) mmol/L Anion Gap 5 (3-11) BUN 27 H (6-23) mg/dl Creatinine 1.50 H (0.6-1.4) mg/dl Est Cr Clr Drug Dosing 52.4 ml/min Est GFR ( Amer) 55.8 ml/min Est GFR (Non-Af Amer) 48.2 ml/min BUN/Creatinine Ratio 18.0 (10-20) Glucose 98 (70-99(Fasting)) mg/dl Calcium 9.5 (8.6-10.3) mg/dl Total Bilirubin 0.4 (0.2-1.0) mg/dl AST 28 (13-39) U/L ALT 38 (7-52) U/L Alkaline Phosphatase 88 (34-104) U/L Troponin I High Sens 5.2 (0-20) pg/ml B-Natriuretic Peptide 42 (0-100) pg/ml Total Protein 7.0 (6.0-8.3) gm/dl Albumin 4.3 (3.4-5.0) gm/dl Globulin 2.7 (2.5-4.0) gm/dl Albumin/Globulin Ratio 1.6 (0.9-2) Procalcitonin 0.03 (0-0.5) ng/ml SARS-CoV-2 (PCR) NEGATIVE (Negative) Influenza Type A (PCR) Negative (Neg) Influenza Type B (PCR) Negative (Neg) RSV (RT-PCR) Negative (Neg) Administered Medications Albuterol (Albut/Ipratrop 3mg/0.5mg Neb 3 Ml Vial) 3 ml NEB QIDR DONA; Protocol Stop: 09/17/23 18:59 Last Admin: 08/18/23 19:18 Dose: 3 ml Documented By: INGRID Discontinued Medications Albuterol (Albut/Ipratrop 3mg/0.5mg Neb 3 Ml Vial) 3 ml NEB NOW STA; Protocol Stop: 08/18/23 15:53 Last Admin: 08/18/23 16:19 Dose: 3 ml Documented By: HE Azithromycin (Azithromycin 250 Mg Tab) 500 mg PO NOW ONE Stop: 08/18/23 17:31 Last Admin: 08/18/23 18:16 Dose: 500 mg Documented By: JOSÉ MIGUEL Sodium Chloride (Nss) 500 mls @ 999 mls/hr IV .Q31M ONE Stop: 08/18/23 16:06 Last Infusion: 08/18/23 18:22 Dose: Infused Documented By: JOSÉ MIGUEL Admin: 08/18/23 16:19 Dose: 999 mls/hr Documented By: HE Sodium Chloride (Nss) 500 mls @ 999 mls/hr IV .Q31M ONE Stop: 08/18/23 16:23 Last Infusion: 08/18/23 18:22 Dose: Infused Documented By: JOSÉ MIGUEL Admin: 08/18/23 16:19 Dose: 999 mls/hr Documented By: HE Ceftriaxone Sodium (Rocephin) 2,000 mg in 50 mls @ 100 mls/hr IV NOW STA Stop: 08/18/23 17:59 Last Infusion: 08/18/23 19:07 Dose: Infused Documented By: Admin: 08/18/23 18:16 Dose: 100 mls/hr Documented By: JOSÉ MIGUEL Ioversol (Optiray 320 125ml) 90 ml IV ONCE ONE Stop: 08/18/23 17:01 Last Admin: 08/18/23 17:01 Dose: 90 ml Documented By: BIJAN Methylprednisolone (Methylprednisolone 125 Mg/2 Ml Vial) 60 mg IV NOW STA Stop: 08/18/23 15:53 Last Admin: 08/18/23 16:19 Dose: 60 mg Documented By: HE Imaging Data Radiologist's Impression: Chest X-Ray 08/18/23 14:47 XR chest 1V not portable HISTORY: Chest pain, nonspecific COMPARISON: Chest 08/29/2020. FINDINGS: The lungs are clear. Cardiac silhouette is normal in size. No pleural effusions. No pneumothorax. IMPRESSION: No acute process. ACT 112: Negative or not required by law. Electronically signed by: Og Younger M.D. 08/18/2023 3:47 PM Chest CTA 08/18/23 15:36 CHEST CTA for PULMONARY ARTERIES CT DOSE: 821.7 mGy.cm HISTORY: Difficulty breathing. TECHNIQUE: Multiaxial CT images of the chest were performed following the intravenous administration of contrast to evaluate the pulmonary arteries. 3D/Maximal intensity projection images were also obtained. Sagittal and coronal reformations were also reviewed. A dose lowering technique was utilized adhering to the principles of ALARA. COMPARISON STUDY: None. FINDINGS: Normal caliber thoracic aorta with no evidence for a dissection. The heart is normal in size. No pleural or pericardial effusions no filling defects within the pulmonary arteries to suggest a pulmonary embolus. Limited views the upper abdomen demonstrate a normal liver, spleen, and adrenal glands appear normal thyroid gland. Normal esophagus. Mildly enlarged bilateral hilar lymph nodes. These are likely reactive. These measure up to 11 mm. No mediastinal lymphadenopathy. No acute fractures within the chest. No pneumothorax. Bronchial wall thickening with multiple partially opacified segmental/subsegmental bronchi. There are small scattered irregular airspace opacities within the right upper lobe medially and a small scattered foci of tree-in-bud nodular opacities within the left lower lobe. Therefore, these findings favor an infectious bronchiolitis or bronchopneumonia. Mild emphysema. IMPRESSION: 1. No evidence for pulmonary embolus. 2. Mild emphysema. 3. Bronchial wall thickening with multiple partially opacified segmental/subsegmental bronchi. There are small scattered irregular airspace opacities within the right upper lobe medially and a small scattered foci of tree-in-bud nodular opacities within the left lower lobe. Therefore, these findings favor an infectious bronchiolitis or bronchopneumonia. ACT 112: Negative or not required by law. Electronically signed by: Og Younger M.D. 08/18/2023 5:18 PM Discharge Plan Visit Data Chief Complaint: Shortness of Breath/Dyspnea Stated Complaint: SOB ED Provider: Shyam Ochoa Discharge Problem: SOB (shortness of breath), Wheezing, Pneumonia, MURCIA (dyspnea on exertion) Patient Disposition: Admitted As Inpatient Condition: Fair Discharge Instructions Interventions: ED Discharge Assessment Last Done: 08/18/23 19:43 Discharge Problem: Pneumonia Qualifiers: Pneumonia type: due to unspecified organism Laterality: unspecified laterality Lung location: unspecified part of lung Qualified Code(s): J18.9 - Pneumonia, unspecified organism
--- NOTE | 2023-08-18 16:10 | Electrocardiogram Report ---
Test Reason : Blood Pressure : / mmHG Vent. Rate : 077 BPM Atrial Rate : 077 BPM P-R Int : 134 ms QRS Dur : 084 ms QT Int : 356 ms P-R-T Axes : 084 053 057 degrees QTc Int : 402 ms Normal sinus rhythm Normal ECG When compared with ECG of 31-AUG-2020 12:04, No significant change was found Confirmed by Sushil Rosen ([id number]) on 08/18/2023 4:10:16 PM Referred By: Confirmed By:Chris Rosen
[2023-08-18] MEDS: methylPREDNISolone 125 MG/2 ML VIAL IV STA (16:19)
[2023-08-18] MEDS: SODIUM CHLORIDE 0.9% 500 ML IV ONE ×2 (16:19)
[2023-08-18] MEDS: ALBUT/IPRATROP 3MG/0.5MG NEB 3 ML VIAL NEB STA (16:19)
[2023-08-18] MEDS: OPTIRAY 320 125ml IV ONE (17:01)
--- NOTE | 2023-08-18 17:21 | CT Scan Report ---
CHEST CTA for PULMONARY ARTERIES CT DOSE: 821.7 mGy.cm HISTORY: Difficulty breathing. TECHNIQUE: Multiaxial CT images of the chest were performed following the intravenous administration of contrast to evaluate the pulmonary arteries. 3D/Maximal intensity projection images were also obta ined. Sagittal and coronal reformations were also reviewed. A dose lowering technique was utilized a dhering to the principles of ALARA. COMPARISON STUDY: None. FINDINGS: Normal caliber thoracic aorta with no evidence for a dissection. The heart is normal in siz e. No pleural or pericardial effusions no filling defects within the pulmonary arteries to suggest a pulmonary embolus. Limited views the upper abdomen demonstrate a normal liver, spleen, and adrenal gl ands appear normal thyroid gland. Normal esophagus. Mildly enlarged bilateral hilar lymph nodes. Thes e are likely reactive. These measure up to 11 mm. No mediastinal lymphadenopathy. No acute fractures within the chest. No pneumothorax. Bronchial wall thickening with multiple partially opacified segmen ana maria/subsegmental bronchi. There are small scattered irregular airspace opacities within the right upp er lobe medially and a small scattered foci of tree-in-bud nodular opacities within the left lower lo be. Therefore, these findings favor an infectious bronchiolitis or bronchopneumonia. Mild emphysema. IMPRESSION: 1. No evidence for pulmonary embolus. 2. Mild emphysema. 3. Bronchial wall thickening with multiple partially opacified segmental/subsegmental bronchi. There are small scattered irregular airspace opacities within the right upper lobe medially and a small sca ttered foci of tree-in-bud nodular opacities within the left lower lobe. Therefore, these findings fa vor an infectious bronchiolitis or bronchopneumonia. ACT 112: Negative or not required by law. Electronically signed by: Og Younger M.D. 08/18/2023 5:18 PM
--- NOTE | 2023-08-18 18:11 | History & Physical Report ---
Date of Service August 18, 2023 Assessment & Plan (1) Bronchopneumonia: Plan: This is a 63-year-old male with PMH of tobacco use disorder, history of childhood asthma, history of prostate cancer, hypertension and other medical problems listed below who presents with worsening shortness of breath over the past few weeks and was found to have bronchopneumonia. Afebrile, no leukocytosis Covid, flu, RSV PCR negative CTA chest with no evidence for pulmonary embolus. Mild emphysema. Bronchial wall thickening with multiple partially opacified segmental/subsegmental bronchi. There are small scattered irregular airspace opacities within the right upper lobe medially and a small scattered foci of tree-in-bud nodular opacities within the left lower lobe. Therefore, these findings favor an infectious bronchiolitis or bronchopneumonia Continue Rocephin and azithromycin Known childhood asthma hx. PCP suspected COPD previously but PFTs from 01/2023 with mild airflow obstruction, not diagnostic for COPD. Continued on Enoro Ellipta and albuterol Continue solumedrol 40mg Q8H for now, Durebekah QIDR Oxygen saturation at 90 - improved to 92 on 2L NC O2 Not on home O2, wean as tolerated (2) CKD (chronic kidney disease): Plan: Cr 1.5 (baseline ~ 1.3). Received fluids in ED. Monitor with daily BMP (3) Tobacco use disorder: Plan: H/o 0.5 pack/day x 30 years. Has not smoked in the past week. Declines nicotine patch (4) HTN (hypertension): Plan: Continue lisinopril 40mg in AM unless renal function worsens (5) Prostate cancer: Plan: H/o prostate cancer in 2016, h/o lap prostatectomy by Dr. Person. Follows with [facility] urology. PSAs have remained undetectable (6) HLD (hyperlipidemia): Plan: Continue home statin DVT Ppx: SQ heparin Code status: FULL PCP: Alfonso Ruano Dispo: [facility] Patient seen in collaboration with Dr. Bland. Please see addendum. I spent a total of 75 minutes coordinating, documenting, and providing care for this patient excluding time spent in the performance of separately billed services. History of Present Illness Chief Complaint: Shortness of breath Primary Care Provider: Paola Ruano, DO This is a 63-year-old male with PMH of tobacco use disorder, history of childhood asthma, history of prostate cancer, hypertension and other medical problems listed below who presents with worsening shortness of breath over the past few weeks. Previously smoking 0.5 ppd x 30 years. Has not smoked in over a week. Patient noted increased SOB with exertion over the past few weeks but woke up during the night short of breath with increased coughing, which was now. Had a similar event at the beginning of the year and was seen in urgent care with improvement with steroids. Was also started on Anoro inhaler a few months back with some improvement. Denies any history of COPD diagnosis, but has been smoking 0.5 pack/day x 30 years. Has not smoked in the past week. Endorses tight cough but "cannot cough anything up" as well as audible wheezing, worse at night. Denies any fever, chills, lightheadedness, headache, chest pain, palpitations, nausea, vomiting, abdominal pain, dysuria, diarrhea or constipation. Allergies Allergy/AdvReac Type Severity Reaction Status Date / Time bee venom protein (honey bee) Allergy Intermediate HIVES Verified 07/08/23 09:38 Home Medications Medication Instructions Recorded Confirmed Type atorvastatin 40 mg tablet 40 mg PO DAILY 08/29/20 08/18/23 History meloxicam 15 mg tablet 15 mg PO DAILY PRN Back Pain 08/29/20 08/18/23 History tramadol 50 mg tablet 50 mg PO BID PRN Pain 08/29/20 08/18/23 History albuterol sulfate 90 mcg/actuation 2 inh inhalation Q4H PRN sob or 08/18/23 08/18/23 History aerosol inhaler wheezing lisinopril 40 mg tablet 40 mg PO DAILY 08/18/23 08/18/23 History umeclidinium 62.5 mcg-vilanterol 1 inh inhalation DAILY 08/18/23 08/18/23 History 25 mcg/actuation powdr for inhalation (Anoro Ellipta) Past Med/Surg History Problem List (Updated 08/18/23 @ 19:01 by Linda Marks PA-C) Bronchopneumonia Elevated PSA (Acute) Prostate cancer (Acute 11/07/15) "Abnormal digital rectal examination, pretreatment PSA 4.850 Status post ultrasound-guided biopsies 11/07/2015 Adenocarcinoma of the prostate Edvin 3+3 Prostate volume 33.4 Prostate density 0.145" Medical History (Updated 08/18/23 @ 19:01 by Linda Marks PA-C) CKD (chronic kidney disease) HLD (hyperlipidemia) Tobacco use disorder HTN (hypertension) Impotence, organic Surgical History H/O prostatectomy Family History Other Colorectal cancer Diabetes Lung cancer Social History Smoking Status: Former smoker Cigarettes Per Day: 10 per day, has not smoked in 1 week; Preferred Language: Lao Feels Safe at Home: Yes Review of Systems Review of Systems: At least ten systems reviewed and negative except as noted in the HPI. Physical Exam Physical Exam: General Appearance: WD/WN, vitals as above, NAD, sitting up in bed, pleasant, conversationally dyspneic Head: normocephalic, atraumatic Eyes: normal inspection, PERRL, conjunctivae normal, anicteric sclerae ENT: external ear and nose normal, oropharynx normal Neck: normal visual inspection, trachea midline, no thyromegaly Respiratory: increased respiratory effort, wheezing bilaterally throughout perry, diminished breath sounds. No accessory muscle use Cardiovascular: regular rate, rhythm, normal peripheral pulses, no BLE edema. Vessels: no JVD Chest: normal inspection of chest Abdomen/GI: normal bowel sounds, soft, nontender, no hepatosplenomegaly Extremities/Musculoskeletal: no cyanosis or clubbing, extremities motor strength 5/5 Neurologic: PERRL, EOMI, accommodation nl, no face palsy, no dysarthria, CN's II-XI intact bilaterally and moves all extremities Psychiatric: A+Ox3, euthymic affect Skin: no rashes, normal color, warm/dry Results & Data Results & Data Vital Signs (Past 12 Hours) Vital Signs Temp Pulse Resp BP Pulse Ox O2 Del Method 08/18/23 14:42 36.9 C 85 18 155/104 H 90 Room Air Laboratory Results Short CBC 08/18/23 Range/Units 14:55 WBC 9.08 (4.8-10.8) K/ul Hgb 15.7 (14.0-18.0) g/dl Hct 48.0 (42.0-52.0) % Plt Count 271 (130-400) K/uL BMP 08/18/23 14:55 Sodium 138 Potassium 4.9 Chloride 106 Carbon Dioxide 27 BUN 27 H Creatinine 1.50 H Glucose 98 Calcium 9.5 Liver Function 08/18/23 Range/Units 14:55 Total Bilirubin 0.4 (0.2-1.0) mg/dl AST 28 (13-39) U/L ALT 38 (7-52) U/L Alkaline Phosphatase 88 (34-104) U/L Albumin 4.3 (3.4-5.0) gm/dl Diagnostic Findings Chest X-Ray 08/18/23 14:47 XR chest 1V not portable HISTORY: Chest pain, nonspecific COMPARISON: Chest 08/29/2020. FINDINGS: The lungs are clear. Cardiac silhouette is normal in size. No pleural effusions. No pneumothorax. IMPRESSION: No acute process. ACT 112: Negative or not required by law. Electronically signed by: Og Younger M.D. 08/18/2023 3:47 PM Chest CTA 08/18/23 15:36 CHEST CTA for PULMONARY ARTERIES CT DOSE: 821.7 mGy.cm HISTORY: Difficulty breathing. TECHNIQUE: Multiaxial CT images of the chest were performed following the intravenous administration of contrast to evaluate the pulmonary arteries. 3D/Maximal intensity projection images were also obtained. Sagittal and coronal reformations were also reviewed. A dose lowering technique was utilized adhering to the principles of ALARA. COMPARISON STUDY: None. FINDINGS: Normal caliber thoracic aorta with no evidence for a dissection. The heart is normal in size. No pleural or pericardial effusions no filling defects within the pulmonary arteries to suggest a pulmonary embolus. Limited views the upper abdomen demonstrate a normal liver, spleen, and adrenal glands appear normal thyroid gland. Normal esophagus. Mildly enlarged bilateral hilar lymph nodes. These are likely reactive. These measure up to 11 mm. No mediastinal lymphadenopathy. No acute fractures within the chest. No pneumothorax. Bronchial wall thickening with multiple partially opacified segmental/subsegmental bronchi. There are small scattered irregular airspace opacities within the right upper lobe medially and a small scattered foci of tree-in-bud nodular opacities within the left lower lobe. Therefore, these findings favor an infectious bronchiolitis or bronchopneumonia. Mild emphysema. IMPRESSION: 1. No evidence for pulmonary embolus. 2. Mild emphysema. 3. Bronchial wall thickening with multiple partially opacified segmental/subsegmental bronchi. There are small scattered irregular airspace opacities within the right upper lobe medially and a small scattered foci of tree-in-bud nodular opacities within the left lower lobe. Therefore, these findings favor an infectious bronchiolitis or bronchopneumonia. ACT 112: Negative or not required by law. Electronically signed by: Og Younger M.D. 08/18/2023 5:18 PM ECG Additional Comments: EKG reviewed: NSR at 77 bpm. There is no acute ST changes. The QTc is 402 Supervising Physician Co-Signing Physician Notes Attending addendum The patient was seen and examined in emergency room He has been complaining of progressive shortness of breath with cough and wheezing for the last 3 weeks Denies any chest pain and/or palpitation Denies any documented fever but does have sweating at times No nausea no vomiting Quit smoking about 1 week ago On examination Sitting at the edge of the bed with shortness of breath Hemodynamically stable Chest-widespread crackles both sides with pronounced at the bases Heart-S1-S2, regular Abdomen-benign Extremities-negative for any edema 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
[2023-08-18] MEDS: cefTRIAXone SODIUM 2,000 MG/50 ML BAG IV STA (18:16)
[2023-08-18] MEDS: AZITHROMYCIN 250 MG TAB PO ONE (18:16)
[2023-08-18] MEDS ORDERED: ALBUTEROL HFA 8 GM INHALER INH PRN (19:11)
[2023-08-18] MEDS: ALBUT/IPRATROP 3MG/0.5MG NEB 3 ML VIAL NEB SCH (19:18)
[2023-08-18] MEDS ORDERED: POLYETHYLENE (MIRALAX) 17 GM PACK PO PRN (20:02)
[2023-08-18] MEDS ORDERED: ONDANSETRON INJ 2 MG/ML 2 ML VIAL IV PRN (20:02)
[2023-08-18] MEDS ORDERED: ACETAMINOPHEN 325 MG TAB PO PRN (20:02)
[2023-08-19] MEDS: methylPREDNISolone 40 MG in SYRINGE 0 ML IV SCH (00:11)
--- OUTSIDE RECORDS SUMMARY | 2023-08-19 05:49 | External Medical Summary | Summary of Care ---
Author Name Unknown Organization [facility] Address [address] [address] Phone [phone] Care Team Providers Care Information Security Manager Name Role Phone Chantelle Hook DO Primary Care Provider [phone] Reason for Visit * Reason Comments eRx-Medication Refill Encounter Details Date Type Department Care Team (Late st Contact Info) Description 07/21/2023 [facility] [place] [address] [address] [facility] [id number] Chantelle Hook DO [address] [place] [address] Acute bronchospasm Allergies Active Allergy Reactions Criticality Noted Date Comments Bee Venom Hives High 11/22/2015 documented as of this encounter (statuses as of 07/21/2023) Medications Medication Sig Dispensed Refills Start Date End Date Status Lisinopril 40 MG Oral TabletIndications: HTN, goal below 130/80 Take 1 Tablet by mouth in the morning. 90 Tablet 3 03/11/2023 Active Meloxicam 15 MG Oral Tablet (Mobic)Indications :Chronic left-sided low back pain without sciatica TAKE 1 TABLET BY MOUTH ONCE DAILY IF NEEDED FOR BACK PAIN 90 Tablet 1 04/21/2023 Active Atorvastatin Calcium 40 MG Oral Tablet (Lipitor)Indicatio ns:Dyslipidemia, goal LDL below 130 TAKE 1 TABLET BY MOUTH EVERY DAY IN THE MORNING 90 Tablet 3 05/20/2023 Active traMADol HCl 50 MG Oral Tablet (Ultram)Indication s:Chronic left-sided low back pain without sciatica TAKE 1 TABLET BY MOUTH 2 TIMES A DAY NEEDED FOR PAIN, SEVERE. MONTH SUPPLY. 40 Tablet 07/10/2023 Active Albuterol Sulfate HFA 108 (90 Base) MCG/ACT Inhalation Aerosol SolutionIndication s:Acute bronchospasm INHALE 2 PUFFS BY MOUTH EVERY 4 HOURS NEEDED (WHEEZING). 54 g 2 07/21/2023 Active Albuterol Sulfate HFA 108 (90 Base) MCG/ACT Inhalation Aerosol SolutionIndication s:Acute bronchospasm INHALE 2 PUFFS BY MOUTH EVERY 4 HOURS NEEDED (WHEEZING). 18 g 2 05/09/2023 07/21/2023 Discontinued Hospital, Clinic, or Other Facility Administered Medication Ordered Dose Route Frequency Start Date End Date Status Albuterol Sulfate (Proventil) (2.5 MG/3ML) 0.083% inhalation solution 2.5 mgIndications:Wheezing- associated respiratory infection (WARI),Tobacco abuse 2.5 mg NEBULIZER ONCE PRN 01/17/2023 01/17/2024 Acti ve documented as of this encounter (statuses as of 07/21/2023) Active Problems Problem Noted Date Diagnosed Date Laceration of left arm with complication 021 Controlled substance agreement signed 09/12/2017 Personal history of malignant neoplasm of prosta te 08/23/2016 Overview: S/p prostatectomy Tobacco abuse 06/06/2016 Right SNHL 04/05/2016 Tinnitus of right ear 01/22/2016 documented as of this encounter (statuses as of 07/21/2023) Resolved Problems Problem Noted Date Diagnosed Date Resolved Date Other obstructive and reflux uropathy 02/21/2021 02/12/2022 Benign prostatic hyperplasia with lower urinary tract symptoms 02/21/2021 02/12/2022 Malignant neoplasm of prostate 09/17/2019 02/12/2022 Prostate cancer 06/06/2016 08/23/2016 documented as of this encounter (statuses as of 07/21/2023) Immunizations Name Administration Dates Next Due COVID-19 mRNA, LNP-s, No Pre serve, 2-Dose Series ([email or web address]) 06/10/2021,12/31/2020,04/29/2020,04/08 Pneumococcal Conjugate Vacci ne, 20-valent ([id number]) 08/27/2022 Pneumococcal Polysaccharide PPV23 (Pneumovax) 06/06/2016 Seasonal Influenza Virus Vac cine, Unspecified Formulation 10/28/2019,11/05/2018,10/10/2017,10/28,11/21/2015,11/16/2015 Seasonal Influenza, PF, 6 M & above, IM , (FluLaval or Fluzone) 11/29/2021,10/28/2019 Seasonal Influenza, Quadriva lent, No Preserve, IM 11/20/2022,11/05/2018,10/10/2017,11/15 Seasonal Influenza, Recombin ant, RIV3, No Preserve 12/31/2020 Seasonal Influenza, Split, I IV3, With Preserve, Inj 10/28/2016 TDAP (age 10 and older)(Boostrix) 08/29/2020, Zoster Vaccine Recombinant (Shingrix) 01/21/2018 ,10/07/2017 documented as of this encounter Social History Tobacco Use Types Packs/Day Years Used Date Smoking Tobacco: Every Day Cigarettes 0.5 45 Smokeless Tobacco: Never Alcohol Use Standard Drinks/Week Comments Yes 0 (1 standard drink = 0.6 oz pur e alcohol) rare PHQ-2 Answer Date Recorded PHQ Adult Total Score 0 03/11/2023 Hunger Vital Sign Answer Date Recorded Worried About Running Out of Food in the Last Ye ar Never true 09/15/2018 Ran Out of Food in the Last Year Never true 09/15/2018 Sex and Gender Information Value Date Recorded Sex Assigned at Not on file Gender Identity Not on file Sexual Orientation Not on file Job Start Date Occupation Industry Not on file Not on file Not on file documented as of this encounter Miscellaneous Notes * Telephone Encounter - Kaitlin Subramanian, [facility] - 07/21/2023 7:42 PM EDTSigned Prescriptions: Disp Refills Albuterol Sulfate HFA 108 (90 Base) MCG/AC*54 g 2 Sig: INHALE 2 PUFFS BY MOUTH EVERY 4 HOURS NEEDED (WHEEZING).Authorizing Provider: CHANTELLE HOOK User: KAITLIN SUBRAMANIAN documented in this encounter Plan of Treatment Upcoming Encounters Date Type Department Care Team (Late st Contact Info) Description 01/27/2024 10:40 AM EST Office Visit [facility] [address] [place] [address] Chantelle Hook DO [address] [place] [address] Scheduled Procedures Name Priority Associated Diagnoses Date/Ti me COLONOSCOPY FLEXIBLE PROXIMAL DIAGNOSTIC Recall History of colon polyps Health Maintenance Due Date Last Done Comments HIV Screening 1973 Hepatitis C Screening 1976 Cologuard 05/28/2003 Fecal Occult Blood Test 05/28/2003 Sigmoidoscopy 05/28/2003 COVID-19 Vaccine ( season) 2022 06/10/2021, 12/31/2020, 04/29/2020, Additional history exists Colonoscopy 11/28/2023 11/27/2018, 11/10, 12/04/2015, Additional history exists Colorectal Cancer Screening 11/28/2023 Depression Screening 03/11/2024 03/11/2023 Diabetes Screening 03/19/2026 03/19/2023, 1 04/08/2021, 02/05/2022, Additional history exists Lipid Panel 03/19/2028 03/19/2023, 01/11, 02/21/2021, Additional history exists DTaP,Tdap,and Td Vaccines (3 - Td or Tdap) 08/29/2030 08/29/2020, 06/06/2016 Zoster Vaccines Completed 01/21/2018, 10/07/2017 RETIRED - COLONOSCOPY-EVERY 5 YRS AGES 18-100 Discontinued 11/27/2018, 11/27/2018, 12/04/2015, Additional history exists Lung Cancer Screening Completed 11/19/2019 Pneumococcal Vaccine: 65+ Years Completed 08/27/2022, 06/06/2016 Influenza Vaccine (FLU shot) Completed 11/20/2022, 11/29/2021, 12/31/2020, Additional history exists AAA Screening Completed 06/25/2023 GARDASIL-HPV IMMUNIZATION SERIES Aged Out No longer eligible based on patient's age to complete this topic Hepatitis B Aged Out No longer eligi ble based on patient's age to complete this topic MENINGOCOCCAL (MENACTRA/MENVEO) Aged Out No longer eligible based on patient's age to complete this topic documented as of this encounter Medical Devices Not on filedocumented as of this encounter Visit Diagnoses Diagnosis Acute bronchospasm documented in this encounter Care Teams Information Security Manager Relationship Specialty Start Date End Date Chantelle Hook DO [address] [place] [address] PCP - General Family Medicine 01/02/16 documented as of this encounter
--- OUTSIDE RECORDS SUMMARY | 2023-08-19 05:49 | External Medical Summary | Summary of Care ---
Author Name Unknown Organization [facility] Address [address] [facility] [address] Phone [phone] Care Team Providers Care Windsmith Name Role Phone Chantelle Hook DO Primary Care Provider [phone] Reason for Visit * Reason Comments eRx-Medication Refill Encounter Details Date Type Department Care Team (Late st Contact Info) Description 07/08/2023 Refill Family Practice [facility] [address] [place] [address] Chantelle Hook DO [address] [place] [address] Chronic left-sided low back pain without sciatica Allergies Active Allergy Reactions Criticality Noted Date Comments Bee Venom Hives High 11/22/2015 documented as of this encounter (statuses as of 07/10/2023) Medications Medication Sig Dispensed Refills Start Date End Date Status Lisinopril 40 MG Oral TabletIndications: HTN, goal below 130/80 Take 1 Tablet by mouth in the morning. 90 Tablet 3 03/11/2023 Active Meloxicam 15 MG Oral Tablet (Mobic)Indications :Chronic left-sided low back pain without sciatica TAKE 1 TABLET BY MOUTH ONCE DAILY IF NEEDED FOR BACK PAIN 90 Tablet 1 04/21/2023 Active Albuterol Sulfate HFA 108 (90 Base) MCG/ACT Inhalation Aerosol SolutionIndication s:Acute bronchospasm INHALE 2 PUFFS BY MOUTH EVERY 4 HOURS NEEDED (WHEEZING). 18 g 2 05/09/2023 Active Atorvastatin Calcium 40 MG Oral Tablet (Lipitor)Indicatio ns:Dyslipidemia, goal LDL below 130 TAKE 1 TABLET BY MOUTH EVERY DAY IN THE MORNING 90 Tablet 3 05/20/2023 Active traMADol HCl 50 MG Oral Tablet (Ultram)Indication s:Chronic left-sided low back pain without sciatica TAKE 1 TABLET BY MOUTH 2 TIMES A DAY NEEDED FOR PAIN, SEVERE. MONTH SUPPLY. 40 Tablet 07/10/2023 Active traMADol HCl 50 MG Oral Tablet (Ultram)Indication s:Chronic left-sided low back pain without sciatica Take 1 Tablet by mouth 2 times a day as needed for Pain, Severe. Month supply. 40 Tablet 06/11/2023 07/10/2023 Discontinued Hospital, Clinic, or Other Facility Administered Medication Ordered Dose Route Frequency Start Date End Date Status Albuterol Sulfate (Proventil) (2.5 MG/3ML) 0.083% inhalation solution 2.5 mgIndications:Wheezing- associated respiratory infection (WARI),Tobacco abuse 2.5 mg NEBULIZER ONCE PRN 01/17/2023 01/17/2024 Acti ve documented as of this encounter (statuses as of 07/10/2023) Active Problems Problem Noted Date Diagnosed Date Laceration of left arm with complication 021 Controlled substance agreement signed 09/12/2017 Personal history of malignant neoplasm of prosta te 08/23/2016 Overview: S/p prostatectomy Tobacco abuse 06/06/2016 Right SNHL 04/05/2016 Tinnitus of right ear 01/22/2016 documented as of this encounter (statuses as of 07/10/2023) Resolved Problems Problem Noted Date Diagnosed Date Resolved Date Other obstructive and reflux uropathy 02/21/2021 02/12/2022 Benign prostatic hyperplasia with lower urinary tract symptoms 02/21/2021 02/12/2022 Malignant neoplasm of prostate 09/17/2019 02/12/2022 Prostate cancer 06/06/2016 08/23/2016 documented as of this encounter (statuses as of 07/10/2023) Immunizations Name Administration Dates Next Due COVID-19 mRNA, LNP-s, No Pre serve, 2-Dose Series ([employer]) 06/10/2021,12/31/2020,04/29/2020,04/08 Pneumococcal Conjugate Vacci ne, 20-valent ([id number]) 08/27/2022 Pneumococcal Polysaccharide PPV23 (Pneumovax) 06/06/2016 Seasonal [...] encounter Miscellaneous Notes * Telephone Encounter - Chantelle Hook DO - 07/10/2023 12:02 PM EDTSigned Prescriptions: Disp Refills traMADol HCl 50 MG Oral Tablet (Ultram) 40 Tab*0 Sig: TAKE 1 TABLET BY MOUTH 2 TIMES A DAY NEEDED FOR PAIN, SEVERE. MONTH SUPPLY.Authorizing Provider: CHANTELLE HOOK * Telephone Encounter - Yolanda Tavares [facility] - 07/10/2023 8:46 AM EDTPending Prescriptions: Disp Refills traMADol HCl 50 MG Oral Tablet [Pharmacy M*40 Tab*0 Sig: Take 1 Tablet by mouth 2 times a day as needed for Pain, Severe. Month supply. * Telephone Encounter - Yolanda Tavares [facility] - 07/10/2023 8:46 AM EDT I have reviewed the patients controlled substance dispensing history in the Prescription Drug Monitoring Program in compliance with the [facility] regulations before prescribing a controlled substance. PDMP checked on 07/10/2023. Pending Prescriptions: Disp Refills traMADol HCl 50 MG Oral Tablet (Ultram) [*40 Tab*0 Sig: TAKE 1 TABLET BY MOUTH 2 TIMES A DAY NEEDED FOR PAIN, SEVERE. MONTH SUPPLY. Last Visit: 03/11/2023 (in office), Visit date not found (telemedicine) Next Visit: 01/27/2024 Date medication was last filled: 06/11/23 Date medication is due for refill: 07/10/23 Pharmacy: [id number] Is this request for a controlled substance? Yes and Urine Drug Screen was completed Toxicology results: Results for orders placed or performed in visit on 08/27/22 PAIN MANAGEMENT DRUG PANEL, URINE W/ INTERPRETATION Result Value Compliance Interpretation Based on medication info provided, The presence of tramadol and desmethyltramadol is CONSISTENT with Tramadol prescription. Amphetamines Screen, U Negative Benzodiazepines Screen, U Negative Cannabinoids Screen, U Negative Cocaine Metabolite Screen, U Negative Fentanyl Screen, U Negative Hydrocodone Screen, U Negative Methadone Metabolite Screen, U Negative Morphine/Codeine Screen, U Negative Oxycodone Screen, U Negative Valid Interpretation Normal Creatinine, U 151 Narrative Cutoff Concentrations: Drug Level Amphetamines 500 ng/mL Benzodiazepines 100 ng/mL Cannabinoids 50 ng/mL Cocaine Metabolite 150 ng/mL Fentanyl 1 ng/mL Hydrocodone / Hydromorphone 300 ng/mL Methadone Metabolite 100 ng/mL Morphine / Codeine 300 ng/mL Oxycodone / Oxymorphone 100 ng/mL Screening results are presumptive and can only be used for medical purposes. Confirmatory testing is available upon request. Please approve if appropriate. Thanks, Yolanda Tavares, PharmD Clinical Pharmacist [facility] ([facility]) [phone] 07/10/2023 8:46 AM documented in this encounter Plan of Treatment Upcoming Encounters Date Type Department Care Team (Late st Contact Info) Description 01/27/2024 10:40 AM EST Office Visit Family Practice [facility] [address] [place] [address] Chantelle Hook DO [address] [place] [address] Scheduled Procedures Name Priority Associated Diagnoses Date/Ti [...] as of this encounter Visit Diagnoses Diagnosis Chronic left-sided low back pain without sciatica documented in this encounter Care Teams Windsmith Relationship Specialty Start Date End Date Chantelle Hook DO [address] [place] [address] PCP - General Family Medicine 01/02/16 documented as of this encounter
--- OUTSIDE RECORDS SUMMARY | 2023-08-19 05:49 | External Medical Summary | Summary of Care ---
Author Name Unknown Organization [facility] Address [address] [address] Phone [phone] Care Team Providers Care Cap Sewer Name Role Phone Chantelle Hook DO Primary Care Provider [phone] Reason for Visit * Reason Comments eRx-Medication Refill Encounter Details Date Type Department Care Team (Late st Contact Info) Description 08/05/2023 Refill Family Practice [facility] [address] [place] [address] Chantelle Hook DO [address] [place] [address] Chronic left-sided low back pain without sciatica Allergies Active Allergy Reactions Criticality Noted Date Comments Bee Venom Hives High 11/22/2015 documented as of this encounter (statuses as of 08/06/2023) Medications Medication Sig Dispensed Refills Start Date [...] THE MORNING 90 Tablet 3 05/20/2023 Active Albuterol Sulfate HFA 108 (90 Base) MCG/ACT Inhalation Aerosol SolutionIndication s:Acute bronchospasm INHALE 2 PUFFS BY MOUTH EVERY 4 HOURS NEEDED (WHEEZING). 54 g 2 07/21/2023 Active traMADol HCl 50 MG Oral Tablet (Ultram)Indication s:Chronic left-sided low back pain without sciatica TAKE 1 TABLET BY MOUTH 2 TIMES A DAY NEEDED FOR PAIN, SEVERE. MONTH SUPPLY. 40 Tablet 08/06/2023 Active traMADol HCl 50 MG Oral Tablet (Ultram)Indication s:Chronic left-sided low back pain without sciatica TAKE 1 TABLET BY MOUTH 2 TIMES A DAY NEEDED FOR PAIN, SEVERE. MONTH SUPPLY. 40 Tablet 07/10/2023 08/06/2023 Discontinued Hospital, Clinic, or Other Facility Administered Medication Ordered Dose Route Frequency Start Date End Date Status Albuterol Sulfate (Proventil) (2.5 MG/3ML) 0.083% inhalation solution 2.5 mgIndications:Wheezing- associated respiratory infection (WARI),Tobacco abuse 2.5 mg NEBULIZER ONCE PRN 01/17/2023 01/17/2024 Acti ve documented as of this encounter (statuses as of 08/06/2023) Active Problems Problem Noted Date Diagnosed Date Laceration of left arm with complication 021 Controlled substance agreement signed 09/12/2017 Personal history of malignant neoplasm of prosta te 08/23/2016 Overview: S/p prostatectomy Tobacco abuse 06/06/2016 Right SNHL 04/05/2016 Tinnitus of right ear 01/22/2016 documented as of this encounter (statuses as of 08/06/2023) Resolved Problems Problem Noted Date Diagnosed Date Resolved Date Other obstructive and reflux uropathy 02/21/2021 02/12/2022 Benign prostatic hyperplasia with lower urinary tract symptoms 02/21/2021 02/12/2022 Malignant neoplasm of prostate 09/17/2019 02/12/2022 Prostate cancer 06/06/2016 08/23/2016 documented as of this encounter (statuses as of 08/06/2023) Immunizations Name Administration Dates Next Due COVID-19 mRNA, LNP-s, No Pre serve, 2-Dose Series (Social Plus) 06/10/2021,12/31/2020,04/29/2020,04/08 Pneumococcal Conjugate Vacci ne, 20-valent ([id number]) 08/27/2022 Pneumococcal Polysaccharide PPV23 (Pneumovax) 06/06/2016 Seasonal [...] in the Last Year Never true 09/15/2018 Utilities Answer Date Recorded Do you have trouble paying y our heating, water, or electric bill? (Adult - for ages 18 years and over) Not on file 07/29/2023 Is your family able to pay t he heat, water, or electric bill? (Household - for ages 0-17 years) Not on file 07/29/2023 Does your family have access to good internet? (Household - for ages 0-17 years) Not on file 07/29/2023 Social Connections Answer Date Recorded How often do you feel lonely or isolated from those around you? (Adult - for ages 18 years and over) Not on file 07/29/2023 Sex and Gender Information Value Date Recorded Sex Assigned at Not on file Gender Identity Not on file Sexual Orientation Not on file Job Start Date Occupation Industry Not on file Not on file Not on file documented as of this encounter Miscellaneous Notes * Telephone Encounter - Chantelle Hook DO - 08/06/2023 1:03 PM EDTSigned Prescriptions: Disp Refills traMADol HCl 50 MG Oral Tablet (Ultram) 40 Tab*0 Sig: TAKE 1 TABLET BY MOUTH 2 TIMES A DAY NEEDED FOR PAIN, SEVERE. MONTH SUPPLY. Authorizing Provider: CHANTELLE HOOK * Telephone Encounter - Dorota Tay [facility] - 08/06/2023 5:54 AM EDTPending Prescriptions: Disp Refills traMADol HCl 50 MG Oral Tablet [Pharmacy M*40 Tab*0 Sig: TAKE 1 TABLET BY MOUTH 2 TIMES A DAY NEEDED FOR PAIN, SEVERE. MONTH SUPPLY. * Telephone Encounter - Dorota Tay [facility] - 08/06/2023 5:53 AM EDT I have reviewed the patients controlled substance dispensing history in the Prescription Drug Monitoring Program in compliance with the [facility] regulations before prescribing a controlled substance. PDMP checked on 08/06/2023. Pending Prescriptions: Disp Refills traMADol HCl 50 MG Oral Tablet (Ultram) [*40 Tab*0 Sig: TAKE 1 TABLET BY MOUTH 2 TIMES A DAY NEEDED FOR PAIN, SEVERE. MONTH SUPPLY. Last Visit: 03/11/2023 (in office), Visit date not found (telemedicine) Next Visit: 01/27/2024 Date medication was last filled: 07/10/23 Date medication is due for refill: 08/08/23 Pharmacy: [id number] [id number] [facility] Is this request for a controlled substance? [...] available upon request. Please approve if appropriate. Thank You, Dorota Tay [facility] Clinical Pharmacist [facility] ([facility]) [phone] 08/06/2023, 5:53 AM documented in this encounter Plan of Treatment Upcoming Encounters Date Type Department Care Team (Late st Contact Info) Description 01/27/2024 10:40 AM EST Office Visit Family [facility] [address] [place] [address] Chantelle Hook DO [address] [place] [address] Scheduled Procedures Name Priority Associated Diagnoses Date/Ti [...] sciatica documented in this encounter Care Teams Cap Sewer Relationship Specialty Start Date End Date Chantelle Hook DO [address] [place] [address] PCP - General Family Medicine 01/02/16 documented as of this encounter
--- OUTSIDE RECORDS SUMMARY | 2023-08-19 05:49 | External Medical Summary | Summary of Care ---
Author Name Unknown Organization [facility] Address [address] [facility] [place] [address] Phone [phone] Care Team Providers Care Employment Supervisor Name Role Phone Paola Ruano DO Primary Care Provider [phone] Reason for Visit * Reason Onset Date Comments Test Results 07/08/2023 Encounter Details Date Type Department Care Team (Late st Contact Info) Description 07/08/2023 Telephone Family Practice [facility] [address] [place] [address] Paola Ruano DO [address] [facility] [place] [id number] Test Results Allergies Active Allergy Reactions Criticality Noted Date Comments Bee Venom Hives High 11/22/2015 documented as of this encounter (statuses as of 07/15/2023) Medications Medication Sig Dispensed Refills Start Date End Date Status Lisinopril 40 MG Oral TabletIndications:HTN, goal below 130/80 Take 1 Tablet by mouth in the morning. 90 Tablet 3 03/11/2023 Active Meloxicam 15 MG Oral Tablet (Mobic)Indications:Chr onic left-sided low back pain without sciatica TAKE 1 TABLET BY MOUTH ONCE DAILY IF NEEDED FOR BACK PAIN 90 Tablet 1 04/21/2023 Active Albuterol Sulfate HFA 108 (90 Base) MCG/ACT Inhalation Aerosol SolutionIndications:Ac alutiiq bronchospasm INHALE 2 PUFFS BY MOUTH EVERY 4 HOURS NEEDED (WHEEZING). 18 g 2 05/09/2023 Active Atorvastatin Calcium 40 MG Oral Tablet (Lipitor)Indications:D yslipidemia, goal LDL below 130 TAKE 1 TABLET BY MOUTH EVERY DAY IN THE MORNING 90 Tablet 3 05/20/2023 Active Hospital, Clinic, or Other Facility Administered Medication Ordered Dose Route Frequency Start Date End Date Status Albuterol Sulfate (Proventil) (2.5 MG/3ML) 0.083% inhalation solution 2.5 mgIndications:Wheezing- associated respiratory infection (WARI),Tobacco abuse 2.5 mg NEBULIZER ONCE PRN 01/17/2023 01/17/2024 Acti ve documented as of this encounter (statuses as of 07/15/2023) Active Problems Problem Noted Date Diagnosed Date Laceration of left arm with complication 021 Controlled substance agreement signed 09/12/2017 Personal history of malignant neoplasm of prosta te 08/23/2016 Overview: S/p prostatectomy Tobacco abuse 06/06/2016 Right SNHL 04/05/2016 Tinnitus of right ear 01/22/2016 documented as of this encounter (statuses as of 07/15/2023) Resolved Problems Problem Noted Date Diagnosed Date Resolved Date Other obstructive and reflux uropathy 02/21/2021 02/12/2022 Benign prostatic hyperplasia with lower urinary tract symptoms 02/21/2021 02/12/2022 Malignant neoplasm of prostate 09/17/2019 02/12/2022 Prostate cancer 06/06/2016 08/23/2016 documented as of this encounter (statuses as of 07/15/2023) Immunizations Name Administration Dates Next Due COVID-19 mRNA, LNP-s, No Pre serve, 2-Dose Series ([employer]) 06/10/2021,12/31/2020,04/29/2020,04/08 Pneumococcal Conjugate Vacci ne, 20-valent ([id number]) 08/27/2022 Pneumococcal Polysaccharide PPV23 (Pneumovax) 06/06/2016 Seasonal [...] encounter Miscellaneous Notes * Telephone Encounter - Rosanne Nair RN - 07/15/2023 9:19 AM EDT Called and left message on voice mail * Telephone Encounter - Paola Ruano DO - 07/08/2023 9:47 AM EDT Please call patient Lyme test was negative Follow up in office if new/worsening symptoms. documented in this encounter Plan of Treatment Upcoming Encounters Date Type Department Care Team (Late st Contact Info) Description 01/27/2024 10:40 AM EST Office [facility] [address] [facility] [place] [address] Paola Ruano DO [address] [place] [address] Scheduled Procedures Name Priority Associated Diagnoses Date/Ti [...] Not on filedocumented as of this encounter Care Teams Employment Supervisor Relationship Specialty Start Date End Date NewPaola dorman DO [address] [place] [address] PCP - General Family Medicine 01/02/16 documented as of this encounter
[2023-08-19] MEDS: traMADol HCL 50 MG TABLET PO PRN (07:41)
[2023-08-19] MEDS: lisinopril 40 MG TAB PO SCH (07:41)
[2023-08-19] MEDS: ATORVASTATIN 40 MG TAB PO SCH (07:41)
[2023-08-19] MEDS: UMECLIDINIUM/VILANTEROL 62.5/25MCG 7 PUFFS/INHALER INH SCH (07:42)
[2023-08-19 08:01] LABS: Hematocrit (blood only) 46.6 % (42.0-52.0); Hemoglobin 15.5 g/dl (14.0-18.0); Mean Corpuscular Hemoglobin 29.6 pg (25.0-34.0); Mean Corpuscular Hgb Conc 33.3 g/dL (32.0-36.0); Mean Corpuscular Volume 88.9 fL (80.0-100.0); Mean Platelet Volume 10.9 fL (9.4-12.4); Platelet Count 274 K/uL (130-400); RDW Coefficient of Variation 12.9 % (11.5-14.5); RDW Standard Deviation 41.9 fL (36.4-46.3); Red Blood Count 5.24 M/uL (4.70-6.10)
[2023-08-19 08:26] LABS: BUN Creatinine Ratio 22.8 (10-20); Calcium 9.3 mg/dl (8.6-10.3); Creatinine Clr Calc Pharmacy 58.5 ml/min; Est GFR (African American) 62.8 ml/min; Est GFR (Non-African American) 54.2 ml/min; Potassium 5.2 mmol/L (3.5-5.1)
--- NOTE | 2023-08-19 15:58 | Hospitalist Progress Note ---
Date of Service August 19, 2023 Assessment & Plan (1) Asthma-COPD overlap syndrome: (2) Bronchopneumonia: Plan: This is a 63-year-old male with PMH of tobacco use disorder, history of childhood asthma, history of prostate cancer, hypertension and other medical pro blems listed below who presents with worsening shortness of breath over the past few weeks and was found to have bronchopneumonia. Afebrile, no leukocytosis Covid, flu, RSV PCR negative CTA chest with no evidence for pulmonary embolus. Mild emphysema. Bronchial wall thickening with multiple partially opacified segmental/subsegmental bronchi. There are small scattered irregular airspace opacities within the right upper lobe medially and a small scattered foci of tree-in-bud nodular opacities within the left lower lobe. Therefore, these findings favor an infectious bronchiolitis or bronchopneumonia Continue Rocephin and azithromycin Known childhood asthma hx. History of smoking; lisinopril presents in CBC with differential. Will benefit from addition of inhaled corticosteroids. Breo Ellipta added, Anoro Ellipta discontinued. Continue on LAMA(umeclidinium) Continue solumedrol 40mg Q8H for now, Duonebs QIDR (3) CKD (chronic kidney disease): Plan: Hyperkalemia On lisinopril 40 mg once a day at home for HTN Potassium up trended to 5.2 Hold off on lisinopril; Will add amlodipine, decrease the dose of lisinopril to 20 mg once a day after BMP tomorrow am (4) Tobacco use disorder: Plan: H/o 0.5 pack/day x 30 years. Has not smoked in the past week. Declines nicotine patch (5) HTN (hypertension): Plan: HOld lisinopril given hyperkalemia, will decrease dose to 20mg once a day if hyperkalemia resolved, Amlodipine added. (6) Prostate cancer: Plan: H/o prostate cancer in 2016, h/o lap prostatectomy by Dr. Person. Follows with [facility] urology. PSAs have remained undetectable (7) HLD (hyperlipidemia): Plan: Continue home statin DVT Ppx: SQ heparin Code status: FULL PCP: Alfonso Ruano Dispo: admitted to [facility] Please note the above document was generated using voice recognition software. It may contain grammatical, syntax or spelling errors. Any formal questions or concerns about the content, text or information contained within the body of this dictation should be directly addressed to the provider for clarification Admission and Anticipated Discharge Date Admission Date: August 18, 2023 Subjective Patient seen and examined at bedside. He reports improvement in shortness of breath; reports mild occasional cough No significant events overnight Review of Systems Review of Systems: All systems reviewed & are unremarkable except as noted in Subjective Physical Exam Physical Exam: Constitutional: WD/WN, vitals as above, NAD, sitting up in bed, pleasant, conversing easily Respiratory: Occasional wheeze Cardiovascular: RRR, no murmur, no edema Vessels: no JVD or carotid bruit Chest: normal inspection of chest Abdomen: normal bowel sounds, soft, nontender, no hepatosplenomegaly Musculoskeletal: no cyanosis or clubbing, extremities motor strength 5/5 Skin: no rashes, warm and dry normal turgor Neurologic: PERRL, EOMI, accommodation nl, no face palsy, no dysarthria CN's II- XI intact bilaterally and moves all extremities Psychiatric: A+Ox3, euthymic affect Results & Data Results & Data Vital Signs (Past 12 Hours) Vital Signs Temp Pulse Resp BP Pulse Ox O2 Del Method FiO2 08/19/23 15:23 36.8 C 112 H 16 157/70 H 92 Room Air 08/19/23 14:58 111 H 18 91 Room Air 21 08/19/23 11:21 109 H 18 90 Room Air 21 08/19/23 08:00 Room Air 08/19/23 07:09 36.4 C L 85 16 141/89 H 91 Room Air 08/19/23 07:06 85 15 91 Room Air
[2023-08-19] MEDS ORDERED: FLUTICASONE/VILANTEROL 100/25MCG 14 PUFFS/INHALER INH SCH (16:00)
[2023-08-19] MEDS ORDERED: UMECLIDINIUM BROMIDE 62.5MCG/BLISTER 7 PUFFS/INHALER INH SCH (16:00)
[2023-08-19] MEDS: amLODIPine BESYLATE 5 MG TAB PO SCH (17:21)
[2023-08-19] MEDS: cefTRIAXone SODIUM 2,000 MG in DEXTROSE 5% 50 ML IV SCH (17:24)
[2023-08-19] MEDS: FLUTICASONE FUROATE 100MCG 14 PUFFS/INHALER INH SCH (18:15)
[2023-08-19] MEDS: AZITHROMYCIN 500 MG in DEXTROSE 5% 250 ML IV SCH (18:19)
[2023-08-19] MEDS: HEPARIN SOD 5,000 UNIT/0.5 ML VIAL SQ SCH (22:42)
[2023-08-20 08:18] LABS: Calcium 9.3 mg/dl (8.6-10.3); Creatinine Clr Calc Pharmacy 53.7 ml/min; Est GFR (African American) 56.7 ml/min; Potassium 4.8 mmol/L (3.5-5.1)
[2023-08-20 08:46] LABS: Hematocrit (blood only) 45.9 % (42.0-52.0); Hemoglobin 15.1 g/dl (14.0-18.0); Mean Corpuscular Hemoglobin 29.2 pg (25.0-34.0); Mean Corpuscular Hgb Conc 32.9 g/dL (32.0-36.0); Mean Corpuscular Volume 88.6 fL (80.0-100.0); Mean Platelet Volume 11.5 fL (9.4-12.4); Platelet Count 289 K/uL (130-400); RDW Coefficient of Variation 13.5 % (11.5-14.5); RDW Standard Deviation 43.9 fL (36.4-46.3); Red Blood Count 5.18 M/uL (4.70-6.10); White Blood Count 30.28 K/ul (4.8-10.8)
[2023-08-20 09:20] VITALS: BP 121/72; RESP 17; TEMP 98.2
[2023-08-20 09:49] VITALS: PULSE 84; O2SAT 92
--- NOTE | 2023-08-20 11:51 | Discharge Summary ---
Discharge Summary Date of Service August 20, 2023 Principal Dx & Hospital Course #1 = Principal Diagnosis (1) Asthma-COPD overlap syndrome: (2) Bronchopneumonia: (3) CKD (chronic kidney disease): (4) Tobacco use disorder: (5) HTN (hypertension): (6) Prostate cancer: (7) Leukocytosis: Plan Patient was admitted to the hospital. Placed on antibiotics for pneumonia as well as high-dose IV steroids for exacerbation of COPD/asthma. Is continued on his bronchodilators and inhaled steroids. Throughout the course of his hospitalization the patient steadily improved. He did not require oxygen. His WBCs did increase while in the hospital. Highly suspect this is due to the high-dose steroids. On the day of discharge she was up and ambulating. He had no shortness of breath. His symptoms are completely resolved. He be transition to oral steroid for short burst. Also transition to oral antibiotics completed course for presumed pneumonia. He can follow-up with his primary care provider to follow his laboratory studies and continue to manage his COPD. Patient reports that he is quitting smoking. He states that he had not smoked now for approximately 2 weeks. He declined a patch or gum. He states he will discuss with his PCP starting Chantix. Notes For Next Care Provider Recommend CBC in approximately 2 weeks Medication Changes From Visit Antibiotics and short course of steroids for pneumonia Admission HPI Per Admitting Provider This is a 63-year-old male with PMH of tobacco use disorder, history of childhood asthma, history of prostate cancer, hypertension and other medical problems listed below who presents with worsening shortness of breath over the past few weeks. Previously smoking 0.5 ppd x 30 years. Has not smoked in over a week. Patient noted increased SOB with exertion over the past few weeks but woke up during the night short of breath with increased coughing, which was now. Had a similar event at the beginning of the year and was seen in urgent care with improvement with steroids. Was also started on Anoro inhaler a few months back with some improvement. Denies any history of COPD diagnosis, but has been smoking 0.5 pack/day x 30 years. Has not smoked in the past week. Endorses tight cough but "cannot cough anything up" as well as audible wheezing, worse at night. Denies any fever, chills, lightheadedness, headache, chest pain, palpitations, nausea, vomiting, abdominal pain, dysuria, diarrhea or constipation. Admission Exam Per Admitting Provider I refer you to the history and physical for completeness. Discharge Exam Constitutional: Alert HEENT: Mucous membranes moist. Lungs: Decreased breath sounds, rare expiratory wheeze CV: S1-S2, regular Abdomen: Soft, nontender, nondistended Extremities: No significant edema Neuro: No focal deficits Psych: Cooperative, normal mood Updated Medication List Medication Instructions Recorded Confirmed Type atorvastatin 40 mg tablet 40 mg PO DAILY 08/29/20 08/18/23 History meloxicam 15 mg tablet 15 mg PO DAILY PRN Back Pain 08/29/20 08/18/23 History tramadol 50 mg tablet 50 mg PO BID PRN Pain 08/29/20 08/18/23 History albuterol sulfate 90 mcg/actuation 2 inh inhalation Q4H PRN sob or 08/18/23 08/18/23 History aerosol inhaler wheezing lisinopril 40 mg tablet 40 mg PO DAILY 08/18/23 08/18/23 History umeclidinium 62.5 mcg-vilanterol 1 inh inhalation DAILY 08/18/23 08/18/23 History 25 mcg/actuation powdr for inhalation (Anoro Ellipta) amlodipine 5 mg tablet (Norvasc) 5 mg PO QAM 30 days #30 tabs 08/20/23 Rx azithromycin 500 mg tablet 500 mg PO DAILY 2 days #2 tabs 08/20/23 Rx (Zithromax) cefdinir 300 mg capsule 300 mg PO BID 5 days #10 caps 08/20/23 Rx prednisone 50 mg tablet 50 mg PO DAILY 3 days #3 tabs 08/20/23 Rx Hospital Stay Data Consultations 08/18/23 17:48 ED Decision to Admit Stat Diagnostic Imagining Performed 08/18/23 15:36 CT angio chest PE protocol Stat Reviewed imaging, laboratory and diagnostic studies. Pertinent findings as below. WBCs 30.2 on the day of discharge, clinically patient is significantly improved. Suspect this leukocytosis is due to high-dose steroids he received here in the hospital. Anticipate improving over the next few weeks Creatinine 1.48 CTA of the chest negative for PE, some mild emphysema and evidence of bronchopneumonia. Pending Results Patient Have Any Pending Studies at Discharge: No Discharge Instructions Given to Patient (Per Discharging Provider) Complete course of antibiotics Discussed with your PCP treatment for urine nicotine addiction Total Time Total Time Spent Total Time Spent (In Minutes): 32
== END 2023-08-20 15:24 | disposition home or self-care (01) | DRG 190 ==
LOC: ED 14:37 → SUATTDRO 18:01 → 3W 18:01